=== PATIENT | female | born 1950 | race Caucasian/White ===

== ENCOUNTER → 2017-08-01 | Outpatient (CLI) | payer MEDICARE ==
[~2017-08-01] MED LIST: ASP81TEC PO; FLEC100T2 PO; MELO-195 PO; TRIMTERENE
== END ==
LOC: CARD 11:55
PROVIDERS: ATTEND Nurse Practitioner Family
DX: R07.9 Chest pain, unspecified (principal); R10.13 Epigastric pain
CPT/HCPCS: 93005

== ENCOUNTER → 2018-02-26 | Outpatient (CLI) | payer MEDICARE ==
[2018-02-26 18:44] LABS: ALBUMIN 4.1 GM/DL (3.2-4.5); BILIRUBIN,TOTAL 0.9 MG/DL (0.1-1.0); CALCIUM 9.8 MG/DL (8.5-10.1); CREATININE SERUM 1.01 MG/DL (0.60-1.30); POTASSIUM 3.4 MMOL/L (3.6-5.0); TOTAL PROTEIN 6.4 GM/DL (6.4-8.2)
--- NOTE | 2018-02-26 18:48 | Diagnostic Imaging Report ---
INDICATION: Right foot pain, random sharp pains on the top of the foot x1 week. No known injury. TECHNIQUE: 3 views of the right foot CORRELATION STUDY: None FINDINGS: No acute bony abnormality. Alignment is anatomic. There are prominent asymmetric degenerative changes along the tarsometatarsal articulations with slight loss of the normal smooth margins. Slight hallux valgus primus varus alignment with additional degenerative changes of the first MTP joint with osteophyte formation. Mild prominent plantar calcaneal spur formation. IMPRESSION: 1. Negative for acute findings of the foot. Multifocal degenerative changes about the right foot, most pronounced at the first MTP joint along the tarsometatarsal articulations. Dictated by: Dictated on workstation # [id number]
== END ==
LOC: RAD 18:08
PROVIDERS: ATTEND Nurse Practitioner Family
DX: M19.071 Primary osteoarthritis, right ankle and foot (principal)
CPT/HCPCS: 36415; 73630; 80053

== ENCOUNTER 2018-12-22 15:58 | Emergency (ER) | payer MEDICARE ==
[~2018-12-22] VITALS: Ht 165.1 cm; Wt 86.2 kg
[2018-12-22] MEDS ORDERED: ACHD5005 PO (16:44)
[2018-12-22] MEDS ORDERED: INDO75CA3 PO (16:44)
--- NOTE | 2018-12-22 16:44 | ED Lower Extremity ---
General Chief Complaint: Lower Extremity Stated Complaint: R FOOT PAIN Nursing Triage Note: PT TO ED W/ CHRONIC RT FOOT PAIN. DENIES PAIN AT THIS TIME. 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 NO OTHER C/O VOICED Nursing Sepsis Screen: No Definite Risk History of Present Illness Date Seen by Provider: Dec 22, 2018 Time Seen by Provider: 16:10 Initial Comments 68-year-old female presents for right foot pain. She states the symptoms of been intermittent over the last year. Over the last 2 days they've gotten worse and today she finally took hydrocodone with improvement after the second dose. She has been given Lyrica for this as well and cyclobenzaprine with minimal improvement when using those medications. She has seen a neurologist and had an MRI of her low back with no conclusive evidence for the cause of her symptoms. Onset: yesterday Pain/Injury Location: right foot Method of Injury: unknown Allergies and Home Medications Allergies Coded Allergies: No Known Drug Allergies (Unverified , 11/29/12) Home Medications Aspirin 81 Mg Tabec, 81 MG PO DAILY, (Reported) Flecainide Acetate 100 Mg Tablet, 100 MG PO BID, (Reported) Hydrocodone Bit/Acetaminophen 1 Tab Tab, 1 EACH PO Q8H PRN for PAIN-MODERATE Prescribed by: SREEKANTH GOODE on 12/22/18 1644 Indomethacin 75 Mg Capsule.er, 75 MG PO DAILY Prescribed by: SREEKANTH GOODE on 12/22/18 1644 Meloxicam 15 Mg Tablet, 1 EACH PO DAILY, (Reported) [Trimterene] , 25 MG DAILY, (Reported) Patient Home Medication List Home Medication List Reviewed: Yes Review of Systems Constitutional: no symptoms reported, see HPI Musculoskeletal: see HPI, joint pain (right foot, metatarsals) All Other Systems Reviewed Negative Unless Noted: Yes Past Qtsfunq-Itvmeu-Blgfzv Hx Past Med/Social Hx: Reviewed Nursing Past Med/Soc Hx Patient Social History Alcohol Use: Rarely Uses Recreational Drug Use: No Smoking Status: Never a Smoker Recent Foreign Travel: No Contact w/Someone Who Travel: No Recent Infectious Disease Expo: No Recent Hopitalizations: No Past Medical History Surgeries: Yes (RT TOTAL KNEE, RT ROTATOR CUFF) Gallbladder, Hysterectomy, Orthopedic Respiratory: No Cardiac: Yes (A-FIB) Neurological: No Genitourinary: No Gastrointestinal: No Musculoskeletal: Yes (ARTHRITIS) Endocrine: No Cancer: Yes Skin Psychosocial: No Integumentary: No Physical Exam Vital Signs Vital Signs - First Documented 12/22/18 16:05 Temp 98.3 Pulse 60 Resp 18 B/P (MAP) 138/79 (98) Pulse Ox 98 O2 Delivery Room Air Capillary Refill : Less Than 3 Seconds Height, Weight, BMI Height: 5'5.00" Weight: 190lbs. oz. [id number]; BMI Method:Stated General Appearance: WD/WN, no apparent distress Cardiovascular: normal peripheral pulses, regular rate, rhythm, no murmur Respiratory: chest non-tender, lungs clear, normal breath sounds Gastrointestinal: normal bowel sounds, non tender, soft Feet: right foot non-tender (at this time the patient is not having pain since she took hydrocodone COMMUNITY RELATIONS SPECIALIST), right foot normal inspection, right foot normal range of motion, right foot no evidence of injury Neurologic/Psychiatric: no motor/sensory deficits, alert, normal mood/affect Skin: normal color, warm/dry Progress/Results/Core Measures Results/Orders Vital Signs/I&O 12/22/18 12/22/18 16:05 16:51 Temp 98.3 Pulse 60 0 Resp 18 0 B/P (MAP) 138/79 (98) 0/0 (0) Pulse Ox 98 0 O2 Delivery Room Air Blood Pressure Mean: 98 Progress Progress Note : Time: 16:10 Progress Note Patient seen and evaluated, since she is asymptomatic at this time no further treatment was recommended. She did have x-rays done of her foot less than 12 months ago. She will follow up with her primary care provider. Discharge instructions and return precautions reviewed with her. Addendum: Pharmacy called, the patient just filled Meloxicam this morning, she did not report that to this provider, will cancel the Rx for Indocin. Departure Impression Primary Impression: Right foot pain Disposition: 01 HOME, SELF-CARE Condition: Improved Departure-Patient Inst. Decision time for Depature: 16:40 Referrals: SHAHNAZ OZUNA MD (PCP/Family) Primary Care Physician Patient Instructions: Metatarsalgia (DC) Add. Discharge Instructions: Alternate between heat and ice to the right foot. Take your home medications as prescribed. Follow-up with your primary care provider if symptoms are not improving or worsen. Take the prescribed medication as indicated. Return to emergency department for new, urgent health care needs. All discharge instructions reviewed with patient and/or family. Voiced unde rstanding. Scripts Indomethacin (Indomethacin) 75 Mg Capsule.er 75 MG PO DAILY, #20 CAP 0 Refills Prov: SREEKANTH GOODE 12/22/18 Hydrocodone Bit/Acetaminophen (Hydrocodone/Acetaminophen 5/325mg Tablet) 1 Tab Tab 1 EACH PO Q8H PRN for PAIN-MODERATE MDD 10, #8 TAB 0 Refills Prov: SREEKANTH GOODE 12/22/18 Copy Copies To 1: SHAHNAZ OZUNA MD, AMY ARNP Dec 22, 2018 16:44
[2018-12-22 16:51] VITALS: BP 0/0
--- NOTE | 2018-12-22 16:51 | NUR ---
PT DISCHARGED TO HOME WITH RX ET INSTR. PT TO F/U W/ PCP, TAKE MEDS PRESCRIBED ET RETURN IF SYMPTOMS CHANGE OR GET WORSE. UNDERSTANDING VOICED.
== END 2018-12-22 16:51 | disposition home or self-care (01) ==
LOC: EDUNIT# 15:58 → ER 15:59
DX: M79.671 Pain in right foot (principal); I48.91 Unspecified atrial fibrillation; Z85.828 Personal history of other malignant neoplasm of skin; Z79.82 Long term (current) use of aspirin; Z90.710 Acquired absence of both cervix and uterus
CPT/HCPCS: 99282

== ENCOUNTER → 2019-09-23 | Outpatient (CLI) | payer MEDICARE ==
[~2019-09-23] MED LIST changes: +ACHD5005 PO; +INDO75CA3 PO
--- NOTE | 2019-09-23 13:08 | Diagnostic Imaging Report ---
INDICATION: Fall with left shoulder pain. TECHNIQUE: AP, oblique, and lateral views of the left shoulder were obtained. FINDINGS: No fracture or dislocation is seen. There is no acute bony abnormality. There is decreased distance between the acromion and humeral head which does raise the possibility of rotator cuff pathology. IMPRESSION: No acute fracture or dislocation of the glenohumeral joint or AC joint. Decreased distance between the acromion and humeral head does raise the possibility of rotator cuff pathology. Consider MRI if clinically warranted. Dictated by: Dictated on workstation # [id number]
--- NOTE | 2019-09-23 13:50 | Diagnostic Imaging Report ---
INDICATION: Post fall couple weeks ago. Pain.. TECHNIQUE: 3 views right RIBS, 11:57 AM. CORRELATION STUDY: None FINDINGS: There is presence of very minimally displaced right 4th and 5th and potentially 6th rib fractures. Some adjacent pleural thickening present. Lungs otherwise clear without pneumothorax. Prior rotator cuff surgery with 2 anchor screws over the humeral head. IMPRESSION: 1. Minimally displaced right lateral 4th, 5th and potentially 6th rib fracture. Associated adjacent pleural thickening. Dictated by: Dictated on workstation # [id number]
== END ==
LOC: RAD 11:02
PROVIDERS: ATTEND Nurse Practitioner Family
DX: M25.512 Pain in left shoulder (principal); R07.81 Pleurodynia; W19.XXXA Unspecified fall, initial encounter
CPT/HCPCS: 71100; 73030

== ENCOUNTER 2021-04-28 14:21 | Outpatient (RCR) | payer MEDICARE ==
[~2021-04-28 14:21] MED LIST changes: +INDO75CA10 PO; -INDO75CA3 PO
== END 2021-05-07 | disposition home or self-care (01) ==
PROVIDERS: ATTEND Nurse Practitioner Family
DX: M54.41 Lumbago with sciatica, right side (principal)

== ENCOUNTER → 2021-05-04 | Outpatient (CLI) | payer MEDICARE ==
--- NOTE | 2021-05-04 15:41 | Diagnostic Imaging Report ---
INDICATION: Postmenopausal COMPARISON: None FINDINGS: The bone mineral density of the spine, the right hip and the right femoral neck was measured. By history the patient has had a total hip preplacement on the left. The total T score for the spine is 1.7. This value is well within normal limits. The T score for the right hip is -2.1 and for the right femoral neck -1.8. These values indicate osteopenia. AP Spine L1-L4: [BMD (g/cm2): 1.406] [T-Score: 1.7] [Z-Score: 2.6] [BMD Previous: 1.067] [BMD % Change: 31.8] LT Hip Neck: [BMD (g/cm2): NA] [T-Score: NA] [Z-Score: NA] LT Hip Total: [BMD (g/cm2):NA] [T-Score:NA] [Z-Score: NA] [BMD Previous: NA] [BMD % Change: NA] RT Hip Neck: [BMD (g/cm2):0.790] [T-Score:-1.8] [Z-Score:-0.5] RT Hip Total: [BMD (g/cm2):0.749] [T-score:-2.1] [Z-Score:-1.1] [BMD Previous:0.813] [BMD % Change:-7.9] *Indicates significant change from prior examination based on 95% confidence level. World Health Organization criteria for BMD interpretation classify patients as Normal (T-score at or above -1.0), Osteopenic (T-score between -1.0 and -2.5) or Osteoporotic (T-score at or below -2.5). LIMITATIONS AND MODIFICATION: None. FRACTURE RISK (FRAX SCORE): The ten year probability of (%): Major Osteoporotic Fracture: [16.8] Hip Fracture: [3.0] IMPRESSION: 1. The bone density of the spine is within normal limits but there is osteopenia of the right hip and the right femoral neck. 2. See below National Osteoporosis Foundation guidelines on when to potentially initiate pharmacologic therapy. Based on the National Osteoporosis Foundation Guidelines, pharmacologic treatment should be initiated in any of the following, unless clinical conditions suggest otherwise: * Any patient with prior fragility fracture of the hip or vertebrae. A spine fracture indicates 5X risk for subsequent spine fracture and 2X risk for subsequent hip fracture. * Osteoporosis (T-score <-2.5). * Postmenopausal women and men age 50 and older with low bone mass/osteopenia (T-score between -1.0 and -2.5) by DXA and 10-year major osteoporotic fracture greater than 20% or a 10-year probability of hip fracture greater than 3%. These fracture risks are supplied above in the FRAX score, if applicable. * Clinician judgement and/or patient preferences may indicate treatment for people with 10-year fracture probabilities above or below these levels. Dictated by: Dictated on workstation # [id number]
== END ==
LOC: RAD 13:00
PROVIDERS: ATTEND Nurse Practitioner Family
DX: M85.89 Other specified disorders of bone density and structure, multiple sites (principal); Z78.0 Asymptomatic menopausal state
CPT/HCPCS: 77080

== ENCOUNTER 2021-05-10 05:41 | Outpatient (CLI) | payer MEDICARE ==
[~2021-05-10] VITALS: Ht 165.1 cm; Wt 97.1 kg
[2021-05-12] MEDS ORDERED: GBPN600T PO (13:34)
[2021-05-12] MEDS ORDERED: LOSA1TAB23 PO (13:34)
== END 2021-05-12 15:43 | disposition home or self-care (01) ==
LOC: PREOP 05:41
PROVIDERS: ATTEND Surgery
DX: Z01.818 Encounter for other preprocedural examination (principal)

== ENCOUNTER 2021-05-17 07:55 | Day surgery (SDC) | payer MEDICARE ==
[~2021-05-17] VITALS: Ht 165 cm; Wt 97.0 kg
[~2021-05-17 07:55] MED LIST changes: +GBPN600T PO; +LOSA1TAB23 PO
--- OUTSIDE RECORDS SUMMARY | 2021-05-17 07:59 | XMS REPORT | CCD ---
Author Author Karma Palomino Organization Elisabeth Lieberman MD, [facility] Address [address] [place] [address] Phone Care Team Providers Care Managed Care Liaison Name Role Phone PP Unavailable CCM Unavailable Summary Purpose Interface Exchange Insurance Providers Payer name Policy type / Coverage type Covered alliance party ID Effective Begin Date Effective End Date [place] [employer] Medicare Part B [id number] 2019 Unknown AARP Medicare Part B [id number] 2019 Unknown Family history Brother Diagnosis Age At Onset Colon cancer Unknown Sister Diagnosis Age At Onset Cancer Unknown Hypertension Unknown Mother Diagnosis Age At Onset Coronary Artery Disease Unknown Hypertension Unknown Father Diagnosis Age At Onset Cancer Unknown Coronary Artery Disease Unknown Hyperlipidemia Unknown Hypertension Unknown Social History Social History Element Codes Description Effective Dates Marital status Unknown Urban 05/28/2015 Employment Unknown Retired 05/28/[address]: 923937785 Never smoker 05/28/2015 Alcohol history Unknown occasionally drinks alcohol 05/09 Allergies, Adverse Reactions, Alerts Substance Reaction Codes Entered Date Inactivated Date Status NO KNOWN ALLERGIES Unknown 05/28/2015 No Inactive Date Active Problems Condition Codes Effective Dates Condition Status Left knee pain ICD-10: M25.562 ICD-9: 719.46 11/28/2019 Active Pre-op evaluation ICD-10: Z01.818 ICD-9: V72.84 11/28/2019 Active Cellulitis of right wrist ICD-10: L03.113 ICD-9: 682.4 09/16/2019 Active Spider bite wound, accidental or unintentional, subseq uent encounter ICD-10: T63.301D ICD-9: V58.89 09/23/2019 Active Spider bite wound, accidental or unintentional, initia l encounter ICD-10: T63.301A ICD-9: 989.5 09/16/2019 Active Follow up ICD-10: Z09 ICD-9: V67.9 09/16/2019 Active Shingles ICD-10: B02.9 ICD-9: 053.9 09/16/2019 Active Essential (primary) hypertension ICD-10: I10 ICD-9: 401.9 12/23/2015 Active Generalized anxiety disorder ICD-10: F41.1 ICD-9: 308.0 12/23/2015 Active Pain in right foot ICD-10: M79.671 ICD-9: 729.5 02/26/2018 Active Primary osteoarthritis of left knee ICD-10: M17.12 ICD-9: 715.16 07/22/2019 Active Follow-up examination after orthopedic surgery ICD-10: Z09 ICD-9: V67.09 04/17/2019 Active Hip fracture, left ICD-10: S72.002A ICD-9: 820.8 04/17/2019 Active Gastro-esophageal reflux disease without esophagitis I CD-10: K21.9 ICD-9: 530.81 08/01/2017 Active Low back pain ICD-10: M54.5 ICD-9: 724.2 08/22/2018 Active Slow transit constipation ICD-10: K59.01 ICD-9: 564.01 08/22/2018 Active Chronic idiopathic constipation ICD-10: K59.04 ICD-9: 564.00 09/21/2016 Active Other insomnia ICD-10: G47.09 ICD-9: 327.09 08/24/2016 Active 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 ICD-9: 715.89 08/24/2016 Active Acute laryngopharyngitis ICD-10: J06.0 ICD-9: 465.0 03/06/2016 Active Other acute sinusitis ICD-10: J01.80 ICD-9: 461.8 03/06/2016 Active Major depressive disorder, recurrent, moderate ICD-10: F33.1 ICD-9: 296.32 12/23/2015 Active Hypertension Unknown 05/28/2015 Active Actinic keratosis ICD-10: L57.0 ICD-9: 702.0 05/27/2015 Active Medications Medication Codes Instructions Start Date Stop Date Status Fill Instructions losartan 100 mg-hydrochlorothiazide 25 mg tablet RxNorm: 979 471 Take 1 Tablet(s) Oral every day 04/12/2021 07/10/2021 Active meloxicam 15 mg tablet RxNorm: 833676 TAKE 1 TABLET BY MOUTH EV SUDARSHAN DAY 08/07/2020 08/02/2021 Active flecainide 100 mg tablet RxNorm: 713017 TAKE 1 TABLET BY MOUTH TWICE DAILY 06/04/2020 05/30/2021 Active tier 1 approved unti l may 07 2020. approval number [id number] gabapentin 600 mg tablet RxNorm: 248117 TAKE 1 TABLET B Y MOUTH THREE TIMES DAILY 06/04/2020 10/02/2020 Inactive tier 1 approved until may 07 2020. approval number is [id number] gabapentin 600 mg tablet RxNorm: 732312 TAKE 1 TABLET B Y MOUTH THREE TIMES DAILY 05/20/2020 06/03/2020 Inactive needs PA for low er tier- please send info to office. flecainide 100 mg tablet RxNorm: 599891 TAKE 1 TABLET BY MOUTH TWICE DAILY 05/20/2020 06/03/2020 Inactive needs PA for lower t ier- please send info to office gabapentin 600 mg tablet RxNorm: 341821 TAKE 1 TABLET B Y MOUTH THREE TIMES DAILY 04/07/2020 05/19/2020 Inactive needs PA- please send info to office. flecainide 100 mg tablet RxNorm: 500359 TAKE 1 TABLET BY MOUTH TWICE DAILY 04/07/2020 05/19/2020 Inactive needs PA- please sen d info to office losartan 100 mg-hydrochlorothiazide 25 mg tablet RxNorm: 979 471 TAKE 1 TABLET BY MOUTH EVERY DAY 04/06/2020 04/06/2020 Inactive meloxicam 15 mg tablet RxNorm: 404473 TAKE 1 TABLET BY MOUTH EV SUDARSHAN DAY 02/04/2020 05/03/2020 Inactive clindamycin HCl 300 mg capsule RxNorm: 964873 1 Capsule (s) Oral three times a day 01/06/2020 01/13/2020 Inactive Augmentin 500 mg-125 mg tablet RxNorm: 769044 1 Tablet( s) Oral three times a day 01/06/2020 01/16/2020 Inactive gabapentin 600 mg tablet RxNorm: 921823 TAKE 1 TABLET B Y MOUTH THREE TIMES DAILY 11/14/2019 03/12/2020 Inactive losartan 100 mg-hydrochlorothiazide 25 mg tablet RxNorm: 979 471 TAKE 1 TABLET BY MOUTH EVERY DAY 10/18/2019 04/05/2020 Inactive flecainide 100 mg tablet RxNorm: 868308 TAKE 1 TABLET BY MOUTH TWICE DAILY 09/23/2019 04/06/2020 Inactive Xanax 0.25 mg tablet RxNorm: 597268 1 Tablet(s) Oral ev sudarshan day as needed anxiety 09/20/2019 No Stop Date Active dapsone 25 mg tablet RxNorm: 858755 1 Tablet(s) Oral two times a da y 09/20/2019 09/27/2019 Inactive naproxen 500 mg tablet RxNorm: 809142 1 Tablet(s) Oral two time s a day 09/20/2019 09/24/2019 Inactive mupirocin 2 % topical ointment RxNorm: 585458 1 Applica tion Topical two times a day 09/16/2019 No Stop Date Active naproxen 500 mg tablet RxNorm: 723627 1 Tablet(s) Oral two time s a day 09/16/2019 09/19/2019 Inactive doxycycline hyclate 100 mg capsule RxNorm: 9436702 1 Cap heavenly(s) Oral two times a day 09/16/2019 09/26/2019 Inactive valacyclovir 1 gram tablet RxNorm: 896661 1 Tablet(s) Oral thre e times a day 09/16/2019 09/23/2019 Inactive gabapentin 600 mg tablet RxNorm: 186327 TAKE 1 TABLET B Y MOUTH THREE TIMES DAILY 09/03/2019 11/01/2019 Inactive meloxicam 15 mg tablet RxNorm: 928448 TAKE 1 TABLET BY MOUTH DAILY 08/05/2019 02/03/2020 Inactive diclofenac 1 % topical gel RxNorm: 392155 1-2 Gram(s) Topical t hree times a day 07/22/2019 08/21/2019 Inactive gabapentin 600 mg tablet RxNorm: 556107 1 Tablet(s) Oral three times a day 05/30/2019 05/29/2019 Inactive gabapentin 600 mg tablet RxNorm: 921350 1 Tablet(s) Oral three times a day 05/30/2019 07/29/2019 Inactive hydrochlorothiazide 25 mg tablet RxNorm: 187568 1 Tablet(s) PO barby y 01/04/2019 03/28/2020 Inactive losartan 100 mg tablet RxNorm: 478492 1 Tablet(s) PO daily 01/05/20 19 03/28/2020 Inactive hydrochlorothiazide 25 mg tablet RxNorm: 454402 1 Tablet(s) PO barby y 01/04/2019 01/03/2019 Inactive losartan 100 mg tablet RxNorm: 066307 1 Tablet(s) PO daily 01/05/20 19 01/03/2019 Inactive losartan 100 mg-hydrochlorothiazide 25 mg tablet RxNorm: 979 471 Tablet(s) TABLET(S) TAKE 1 TABLET BY MOUTH EVERY DAY 01/01/2019 06/29/2019 Inact carlos meloxicam 15 mg tablet RxNorm: 500702 1 TABLET(S) PO DAILY 1 TA BLET(S) PO DAILY 2018 08/04/2019 Inactive Lyrica 150 mg capsule RxNorm: 421202 1 Capsule(s) PO BID 10/18/2018 1 Inactive Lyrica 150 mg capsule RxNorm: 015961 1 Capsule(s) PO BID 10/18/2018 0 10/17/2018 Inactive flecainide 100 mg tablet RxNorm: 690463 1 TABLET(S) PO BID TABLET(S) TAKE 1 TABLET BY MOUTH TWICE DAILY 08/29/2018 08/23/2019 Inactive Carafate 1 gram tablet RxNorm: 831428 1 TABLET(S) PO QID 08/23/2018 0 10/21/2018 Inactive Patient requests 90 days supply Protonix 40 mg tablet,delayed release RxNorm: 607809 1 TABLET(S ) PO DAILY 08/23/2018 10/21/2018 Inactive Patient requests 9 0 days supply Protonix 40 mg tablet,delayed release RxNorm: 291546 1 Tablet(s ) PO daily 08/22/2018 08/21/2018 Inactive Carafate 1 gram tablet RxNorm: 336112 1 Tablet(s) PO QID 08/22/2018 0 08/22/2018 Inactive Linzess 72 mcg capsule RxNorm: 0940496 1 Capsule(s) PO daily 201811/19/2018 Inactive Protonix 40 mg tablet,delayed release RxNorm: 505103 1 Tablet(s ) PO daily 08/22/2018 08/22/2018 Inactive Linzess 72 mcg capsule RxNorm: 4042834 1 Capsule(s) PO daily 201808/21/2018 Inactive Carafate 1 gram tablet RxNorm: 419466 1 Tablet(s) PO QID 08/22/2018 0 08/21/2018 Inactive cyclobenzaprine 5 mg tablet RxNorm: 379245 1-2 Tablet(s) PO TID 08/26/2018 Inactive losartan 100 mg-hydrochlorothiazide 25 mg tablet RxNorm: 979 471 TABLET(S) TAKE 1 TABLET BY MOUTH EVERY DAY 06/25/2018 12/21/2018 Inactive cyclobenzaprine 5 mg tablet RxNorm: 774429 1-2 Tablet(s) PO TID 04/01/2018 Inactive Dexilant 60 mg capsule, delayed release RxNorm: 825468 1 Capsul e(s) PO daily 03/09/2018 03/08/2018 Inactive Dexilant 60 mg capsule, delayed release RxNorm: 012849 1 Capsul e(s) PO daily 03/09/2018 04/07/2018 Inactive Lyrica 75 mg capsule RxNorm: 742424 1 Capsule(s) PO TID 03/09/2018 Inactive amoxicillin 500 mg capsule RxNorm: 045589 1 Capsule(s) PO TID 03/0503/11/2018 Inactive cyclobenzaprine 5 mg tablet RxNorm: 167389 1-2 Tablet(s) PO TID 03/02/2018 Inactive acyclovir 800 mg tablet RxNorm: 276719 1 Tablet(s) PO TID 02/26/2018 03/03/2018 Inactive Lyrica 75 mg capsule RxNorm: 775395 1 Capsule(s) PO TID 02/26/2018 Inactive meloxicam 15 mg tablet RxNorm: 285978 1 TABLET(S) PO DAILY 1 TA BLET(S) PO DAILY 12/08/2017 12/02/2018 Inactive flecainide 100 mg tablet RxNorm: 806355 1 TABLET(S) PO BID TABLET(S) TAKE 1 TABLET BY MOUTH TWICE DAILY 09/12/2017 08/28/2018 Inactive meloxicam 15 mg tablet RxNorm: 605741 1 TABLET(S) PO DAILY 1 TA BLET(S) PO DAILY 09/11/2017 12/18/2018 Inactive meloxicam 15 mg tablet RxNorm: 210777 1 Tablet(s) PO daily 1 TA BLET(S) PO DAILY 09/07/2017 09/10/2017 Inactive Bactrim DS 800 mg-160 mg tablet RxNorm: 682239 1 Tablet(s) PO BID 0 07/03/2017 07/09/2017 Inactive Bactrim DS 800 mg-160 mg tablet RxNorm: 843625 1 Tablet(s) PO BID 0 07/03/2017 07/02/2017 Inactive losartan 100 mg-hydrochlorothiazide 25 mg tablet RxNorm: 979 471 Tablet(s) TAKE 1 TABLET BY MOUTH EVERY DAY 06/08/2017 03/04/2018 Inactive losartan 100 mg-hydrochlorothiazide 25 mg tablet RxNorm: 979 471 1 TABLET(S) PO DAILY TABLET(S) TAKE 1 TABLET BY MOUTH EVERY DAY 12/05/2016 06/07/2017 Inactive amoxicillin 500 mg capsule RxNorm: 198957 1 Capsule(s) PO TID 10/1410/23/2016 Inactive losartan 100 mg-hydrochlorothiazide 25 mg tablet RxNorm: 979 471 1 Tablet(s) PO daily TABLET(S) TAKE 1 TABLET BY MOUTH EVERY DAY 08/24/2016 12/04/2016 Inactive meloxicam 15 mg tablet RxNorm: 039338 1 Tablet(s) PO daily 1 TA BLET(S) PO DAILY 08/24/2016 09/06/2017 Inactive flecainide 100 mg tablet RxNorm: 782041 1 Tablet(s) PO BID TABLET(S) TAKE 1 TABLET BY MOUTH TWICE DAILY 08/24/2016 09/11/2017 Inactive flecainide 100 mg tablet RxNorm: 387221 TABLET(S) TAKE 1 TABLET BY MOUTH TWICE DAILY 08/02/2016 08/23/2016 Inactive flecainide 100 mg tablet RxNorm: 836921 TABLET(S) TAKE 1 TABLET BY MOUTH TWICE DAILY 07/04/2016 08/01/2016 Inactive flecainide 100 mg tablet RxNorm: 627498 TABLET(S) TAKE 1 TABLET BY MOUTH TWICE DAILY 05/30/2016 06/28/2016 Inactive meloxicam 15 mg tablet RxNorm: 530155 1 TABLET(S) PO DAILY 05/18/19 17 08/23/2016 Inactive losartan 50 mg-hydrochlorothiazide 12.5 mg tablet RxNorm: 97 9468 TABLET(S) TAKE 1 TABLET BY MOUTH EVERY DAY 05/18/2016 06/16/2016 Inactive meloxicam 15 mg tablet RxNorm: 683774 Tablet(s) TAKE 1 TABLET BY MOUTH EVERY DAY 05/17/2016 07/31/2017 Inactive losartan 50 mg-hydrochlorothiazide 12.5 mg tablet RxNorm: 97 9468 Tablet(s) TAKE 1 TABLET BY MOUTH EVERY DAY 05/17/2016 07/31/2017 Inactive amoxicillin 500 mg capsule RxNorm: 564159 1 Capsule(s) PO TID 03/0703/13/2016 Inactive Kenalog 40 mg/mL suspension for injection RxNorm: 5445421 1 Mill iliter(s) Inj 03/07/2016 03/07/2016 Inactive Zithromax Z-Feliciano 250 mg tablet RxNorm: 243863 1 Tablet(s) PO 016 08/23/2016 Inactive Wellbutrin XL 150 mg 24 hr tablet, extended release RxNorm: 065841 1 Tablet(s) PO daily 12/24/2015 08/23/2016 Inactive losartan 50 mg-hydrochlorothiazide 12.5 mg tablet RxNorm: 97 9468 TAKE 1 TABLET BY MOUTH EVERY DAY 11/17/2015 12/16/2015 Inactive flecainide 100 mg tablet RxNorm: 264471 TAKE 1 TABLET BY MOUTH TWICE DAILY 11/17/2015 07/31/2017 Inactive losartan 50 mg-hydrochlorothiazide 12.5 mg tablet RxNorm: 97 9468 TABLET(S) TAKE 1 TABLET BY MOUTH EVERY DAY 11/17/2015 07/31/2017 Inactive Serafin woo requests 90 days supply meloxicam 15 mg tablet RxNorm: 474651 TAKE 1 TABLET BY MOUTH 11/17/2015 12/16/2015 Inactive meloxicam 15 mg tablet RxNorm: 732518 1 Tablet(s) PO daily 11/16/19 16 11/16/2015 Inactive flecainide 100 mg tablet RxNorm: 306200 Tablet(s) TAKE 1 TABLET BY MOUTH TWICE DAILY 11/16/2015 05/13/2016 Inactive losartan 50 mg-hydrochlorothiazide 12.5 mg tablet RxNorm: 97 9468 Tablet(s) TAKE 1 TABLET BY MOUTH EVERY DAY 11/16/2015 11/16/2015 Inactive losartan 50 mg-hydrochlorothiazide 12.5 mg tablet RxNorm: 97 9468 TAKE 1 TABLET BY MOUTH EVERY DAY 10/15/2015 11/13/2015 Inactive flecainide 100 mg tablet RxNorm: 168778 TAKE 1 TABLET BY MOUTH TWICE DAILY 10/08/2015 11/06/2015 Inactive losartan 50 mg-hydrochlorothiazide 12.5 mg tablet RxNorm: 97 9468 TAKE 1 TABLET BY MOUTH EVERY DAY 08/20/2015 09/18/2015 Inactive meloxicam 15 mg tablet RxNorm: 807208 1 Tablet(s) PO daily 07/20/19 16 11/15/2015 Inactive flecainide 100 mg tablet RxNorm: 233479 1 Tablet(s) PO BID 07/20/19 16 09/17/2015 Inactive aspirin 81 mg chewable tablet RxNorm: 495338 1 Tablet(s) PO daily 0 05/28/2015 06/26/2015 Inactive Vitamin D3 2,000 unit tablet RxNorm: 107134 1 Tablet(s) PO daily 06/26/2015 Inactive aspirin 81 mg chewable tablet RxNorm: 531311 1 Tablet(s) PO daily 0 05/28/2015 05/27/2015 Inactive flecainide 100 mg tablet RxNorm: 526501 1 Tablet(s) PO BID 05/28/19 16 06/26/2015 Inactive losartan 50 mg-hydrochlorothiazide 12.5 mg tablet RxNorm: 97 9468 1 Tablet(s) PO daily 05/28/2015 06/26/2015 Inactive meloxicam 15 mg tablet RxNorm: 969412 1 Tablet(s) PO daily 05/28/19 16 06/26/2015 Inactive meloxicam 15 mg tablet RxNorm: 127797 1 Tablet(s) PO daily 05/22/19 16 05/27/2015 Inactive meloxicam 15 mg tablet RxNorm: 428954 1 Tablet(s) PO daily 05/22/19 16 05/21/2015 Inactive Linzess oral RxNorm: 1476135 oral 12/20/2016 Active Vitamin D3 2,000 unit tablet RxNorm: 435259 1 Tablet(s) PO daily 05/27/2015 Inactive losartan 50 mg-hydrochlorothiazide 12.5 mg tablet RxNorm: 97 9468 1 Tablet(s) PO daily 05/28/2015 05/27/2015 Inactive flecainide 100 mg tablet RxNorm: 931056 1 Tablet(s) PO BID 05/28/19 16 05/27/2015 Inactive Medication Administered Medication Codes Instructions Start Date Status Kenalog 40 mg/mL suspension for injection RxNorm: 5800015 1Milli liter 03/07/2016 No longer Active Immunizations No Immunization data Results Observation Observation Code Item Item Code Result Date S ervice Location Lipid Ord30 CHOL 199 mg/dL 01/04/2017 Unknown Lipid Ord30 HDL 61.0 mg/dl 01/04/2017 Unknown Lipid Ord30 TRIG 104 mg/dL 01/04/2017 Unknown Lipid Ord30 LDL 117 mg/dL 01/04/2017 Unknown Lipid Ord30 C/HDL 3.3 Ratio 01/04/2017 Unknown Cbc With Differential Ord2 WBC 6.65 K/ul 01/05/20 17 Unknown Cbc With Differential Ord2 RBC 4.28 M/ul 01/05/20 17 Unknown Cbc With Differential Ord2 HGB 13.8 g/dl 01/05/20 17 Unknown Cbc With Differential Ord2 HCT 40.8 % 01/05/20 17 Unknown Cbc With Differential Ord2 Neut% 63.6 % 01/05/20 17 Unknown Cbc With Differential Ord2 MCV 95.3 fl 01/05/20 17 Unknown Cbc With Differential Ord2 Lymph% 24.5 % 01/05/20 17 Unknown Cbc With Differential Ord2 MCH 32.2 pg 01/05/20 17 Unknown Cbc With Differential Ord2 Barton% 6.8 % 01/05/20 17 Unknown Cbc With Differential Ord2 MCHC 33.8 pg 01/05/20 17 Unknown Cbc With Differential Ord2 Eos% 4.5 % 01/05/20 17 Unknown Cbc With Differential Ord2 PLT 189 K/ul 01/05/20 17 Unknown Cbc With Differential Ord2 Baso% 0.6 % 01/05/20 17 Unknown Cbc With Differential Ord2 RDW 12.8 % 01/05/20 17 Unknown Cbc With Differential Ord2 Neut ABS# 4.23 K/ul 01/05/20 17 Unknown Cbc With Differential Ord2 Lymph ABS# 1.63 K/ul 017 Unknown Cbc With Differential Ord2 Barton ABS# 0.5 K/ul 01/05/20 17 Unknown Cbc With Differential Ord2 Eos ABS# 0.3 K/ul 01/05/20 17 Unknown Cbc With Differential Ord2 Baso ABS# 0.0 K/ul 01/05/20 17 Unknown Comp Metabolic Apa505 NA 144 mEq/L 01/04/2017 Unkn own Comp Metabolic Bcp099 K 3.7 mEq/L 01/04/2017 Unkn own Comp Metabolic Igz090 CL 106 mEq/L 01/04/2017 Unkn own Comp Metabolic Lph326 CO2 28.0 mEq/L 01/04/2017 Unk nown Comp Metabolic Djg511 ANION GAP 14 01/04/2017 Unkn own Comp Metabolic Mxr748 GLUCOSE 80 mg/dL 01/04/2017 Unkn own Comp Metabolic Hjx592 Creat 0.9 mg/dL 01/04/2017 Unkn own Comp Metabolic Wvt206 eGFR 65 ml/min/1.73m2 01/05/20 17 Unknown Comp Metabolic Twg514 BUN 18 mg/dL 01/04/2017 Unkn own Comp Metabolic Svv645 B/C Ratio 19.8 Ratio 01/04/2017 Unk nown Comp Metabolic Rlg230 CALCIUM 9.3 mg/dL 01/04/2017 Unkn own Comp Metabolic Xqm506 ALK PHOS 65 U/L 01/04/2017 Unkn own Comp Metabolic Bxw818 AST(SGOT) 16 U/L 01/04/2017 Unkn own Comp Metabolic Ksh740 ALT(SGPT) 18 U/L 01/04/2017 Unkn own Comp Metabolic Fdn224 BILI T 1.2 mg/dL 01/04/2017 Unkn own Comp Metabolic Ivl349 ALBUMIN 3.9 g/dL 01/04/2017 Unkn own Comp Metabolic Xmk867 TPRO 6.1 g/dL 01/04/2017 Unkn own Comp Metabolic Dht586 GLOB 2.2 g/dL 01/04/2017 Unkn own Comp Metabolic Vct249 A/G Ratio 1.8 Ratio 01/04/2017 Unkn own Comp Metabolic Uvq080 Osmo 288 mOsmo 01/04/2017 Unkn own Tsh Ord6 hTSH II 1.22 uIU/mL 01/04/2017 Unknown Comp Metabolic Ozi779 NA 139 mEq/L 12/24/2015 Unkn own Comp Metabolic Gkt560 K 3.7 mEq/L 12/24/2015 Unkn own Comp Metabolic Ptr804 CL 105 mEq/L 12/24/2015 Unkn own Comp Metabolic Jnl591 CO2 30.0 mEq/L 12/24/2015 Unk nown Comp Metabolic Dac290 ANION GAP 8 12/24/2015 Unkn own Comp Metabolic Bgi854 GLUCOSE 83 mg/dL 12/24/2015 Unkn own Comp Metabolic Mhv494 Creat 0.9 mg/dL 12/24/2015 Unkn own Comp Metabolic Kmr000 eGFR 70 ml/min/1.73m2 12/24/19 16 Unknown Comp Metabolic Vkx865 BUN 20 mg/dL 12/24/2015 Unkn own Comp Metabolic Eem415 B/C Ratio 23.3 Ratio 12/24/2015 Unk nown Comp Metabolic Beb926 CALCIUM 9.2 mg/dL 12/24/2015 Unkn own Comp Metabolic Gmt699 ALK PHOS 65 U/L 12/24/2015 Unkn own Comp Metabolic Ala319 AST(SGOT) 17 U/L 12/24/2015 Unkn own Comp Metabolic Ybk360 ALT(SGPT) 18 U/L 12/24/2015 Unkn own Comp Metabolic Mjx579 BILI T 1.1 mg/dL 12/24/2015 Unkn own Comp Metabolic Mqd066 ALBUMIN 3.9 g/dL 12/24/2015 Unkn own Comp Metabolic Yel532 TPRO 6.1 g/dL 12/24/2015 Unkn own Comp Metabolic Czd185 GLOB 2.2 g/dL 12/24/2015 Unkn own Comp Metabolic Qjc339 A/G Ratio 1.8 Ratio 12/24/2015 Unkn own Comp Metabolic Obv403 Osmo 279 mOsmo 12/24/2015 Unkn own Lipid Ord30 CHOL 211 mg/dL 12/24/2015 Unknown Lipid Ord30 HDL 61.0 mg/dl 12/24/2015 Unknown Lipid Ord30 TRIG 92 mg/dL 12/24/2015 Unknown Lipid Ord30 LDL 132 mg/dL 12/24/2015 Unknown Lipid Ord30 C/HDL 3.5 Ratio 12/24/2015 Unknown Cbc With Differential Ord2 WBC 5.34 K/ul 12/24/19 16 Unknown Cbc With Differential Ord2 RBC 4.31 M/ul 12/24/19 16 Unknown Cbc With Differential Ord2 HGB 13.6 g/dl 12/24/19 16 Unknown Cbc With Differential Ord2 HCT 41.7 % 12/24/19 16 Unknown Cbc With Differential Ord2 Neut% 58.2 % 12/24/19 16 Unknown Cbc With Differential Ord2 Lymph% 26.6 % 12/24/19 16 Unknown Cbc With Differential Ord2 MCV 96.8 fl 12/24/19 16 Unknown Cbc With Differential Ord2 Barton% 8.2 % 12/24/19 16 Unknown Cbc With Differential Ord2 MCH 31.6 pg 12/24/19 16 Unknown Cbc With Differential Ord2 Eos% 6.6 % 12/24/19 16 Unknown Cbc With Differential Ord2 MCHC 32.6 pg 12/24/19 16 Unknown Cbc With Differential Ord2 Baso% 0.4 % 12/24/19 16 Unknown Cbc With Differential Ord2 PLT 178 K/ul 12/24/19 16 Unknown Cbc With Differential Ord2 RDW 13.1 % 12/24/19 16 Unknown Cbc With Differential Ord2 Neut ABS# 3.11 K/ul 12/24/19 16 Unknown Cbc With Differential Ord2 Lymph ABS# 1.42 K/ul 016 Unknown Cbc With Differential Ord2 Barton ABS# 0.4 K/ul 12/24/19 16 Unknown Cbc With Differential Ord2 Eos ABS# 0.4 K/ul 12/24/19 16 Unknown Cbc With Differential Ord2 Baso ABS# 0.0 K/ul 12/24/19 16 Unknown Tsh Ord6 hTSH II 1.45 uIU/mL 12/24/2015 Unknown Procedures Procedure Codes Date TRIAMCINOLONE ACET INJ NOS 10 mg CPT-4: J3301 016 DESTRUCT PREMALG LES 2-14 CPT-4: 88454 05/28/2015 Vital Signs Date Vital 11/28/2019 Weight: 205 lbs Code: 71170 -7 09/20/2019 Height: Code: 8302-2 Weight: Code: 294 63-7 09/16/2019 Heart Rate 1: 70 bpm Height: Code: 8302-2 SpO2: 98% Weight: Code: 63474-4 07/22/2019 Blood Pressure 1: 116/70 Code: 8480-6 BMI: 35.2 Code: 72909-4 Heart Rate 1: 54 bpm Height: 5'3" Code: 8302-2 Respiratory Rate: 16 bpm SpO2: 97% Weight: 202 lbs Code: 84391-0 04/17/2019 Blood Pressure 1: 156/70 Code: 8480-6 BMI: 32.9 Code: 68483-4 Heart Rate 1: 68 bpm Height: 5'6" Code: 8302-2 SpO2: 99% Weight: 204 lb s Code: 91540-2 08/22/2018 Blood Pressure 1: 128/64 Code: 8480-6 BMI: 31.3 Code: 45848-5 Heart Rate 1: 76 bpm Height: 5'6" Code: 8302-2 SpO2: 98% Weight: 194 lb s Code: 02473-4 02/26/2018 Blood Pressure 1: 140/72 Code: 8480-6 BMI: 33.6 Code: 33498-2 Heart Rate 1: 64 bpm Height: 5'6" Code: 8302-2 SpO2: 99% Weight: 208 lb s Code: 43989-2 08/01/2017 Blood Pressure 1: 148/82 Code: 8480-6 BMI: 37.3 Code: 42331-5 Heart Rate 1: 62 bpm Height: 5'6" Code: 8302-2 SpO2: 98% Weight: 231 lb s Code: 99739-9 2016 Blood Pressure 1: 128/64 Code: 8480-6 BMI: 38.4 Code: 54893-2 Heart Rate 1: 69 bpm Height: 5'6" Code: 8302-2 SpO2: 96% Weight: 238 lb s Code: 49810-8 09/21/2016 Blood Pressure 1: 148/90 Code: 8480-6 Bl ood Pressure 1: 138/82 Code: 8480-6 BMI: 37.9 Code: 30824-7 Heart Rate 1: 62 bpm Height: 5'6" Code: 8302-2 SpO2: 96% Weight: 235 lbs Code: 55062-2 08/24/2016 Blood Pressure 1: 164/82 Code: 8480-6 BMI: 38.3 Code: 46017-3 Heart Rate 1: 71 bpm Height: 5'6" Code: 8302-2 SpO2: 96% Weight: 237 lb s 8 oz Code: 54872-2 03/07/2016 Blood Pressure 1: 124/68 Code: 8480-6 BMI: 37.3 Code: 45094-8 Heart Rate 1: 58 bpm Height: 5'6" Code: 8302-2 SpO2: 97% Weight: 231 lb s Code: 61705-8 12/24/2015 Blood Pressure 1: 140/66 Code: 8480-6 BMI: 37.6 Code: 13581-1 Heart Rate 1: 57 bpm Height: 5'6" Code: 8302-2 SpO2: 97% Weight: 233 lb s Code: 20168-6 05/28/2015 Blood Pressure 1: 156/88 Code: 8480-6 BMI: 38.4 Code: 23204-3 Heart Rate 1: 62 bpm Height: 5'6" Code: 8302-2 Weight: 238 lbs Code: 02697 -7 Functional Status No Functional Status data Reason For Visit Reason For Visit Effective Dates Notes pre-op/surgery consult 11/28/2019 skin lesion 09/23/2019 skin lesion 09/20/2019 skin lesion 09/16/2019 pre-op/surgery consult 07/22/2019 fracture of the hip 04/17/2019 abdominal pain 08/22/2018 foot pain 02/26/2018 dyspepsia 08/01/2017 hypertension 2016 hypertension 09/21/2016 hypertension 08/24/2016 ongoing earache 03/07/2016 hypertension 12/24/2015 hypertension 05/28/2015 Encounters Encounter Performer Location Codes Date 32128 EST. PATIENT, LEVEL III Diagnosis: Left knee pain[ICD10: M25.562] Diagnosis: Pre-op evaluation[ICD10: Z01.818] Yen atkins MD, [facility] CPT-4: 95768 11/28/2019 [id number] EST. PATIENT, LEVEL II Diagnosis: Cellulitis of right wrist[ICD10: L03.113] Diagnosis: Spider bite wound, accidental or unintentional, subsequent encounter[ICD10: T63.301D] Yen Lieberman MD, [facility] CPT-4: 95184 09/23/2019 [id number] EST. PATIENT, LEVEL II Diagnosis: Cellulitis of right wrist[ICD10: L03.113] Diagnosis: Spider bite wound, accidental or unintentional, subsequent encounter[ICD10: T63.301D] Yen Lieberman MD, [facility] CPT-4: 80235 09/20/2019 [id number] EST. PATIENT, LEVEL III Diagnosis: Cellulitis of right wrist[ICD10: L03.113] Diagnosis: Follow up[ICD10: Z09] Diagnosis: Spider bite wound, accidental or unintentional, initial encounter[ICD10: T63.301A] Diagnosis: Shingles[ICD10: B02.9] Yen Lieberman MD, [facility] CPT -4: 45482 09/16/2019 ([id number]) [id number] EST. PATIENT, LEVEL IV Diagnosis: Essential (primary) hypertension[ICD10: I10] Diagnosis: Generalized anxiety disorder[ICD10: F41.1] Diagnosis: Pain in right foot[ICD10: M79.671] Diagnosis: Primary osteoarthritis of left knee[ICD10: M17.12] Elisabeth Lieberman MD, [facility] [facility] CPT-4: 31270 07/22/2019 49751 EST. PATIENT, LEVEL III Diagnosis: Follow-up examination after orthopedic surgery[ICD10: Z09] Diagnosis: Hip fracture, left[ICD10: S72.002A] Yen more MD, [facility] CPT-4: 33127 04/17/2019 13064 EST. PATIENT, LEVEL IV Diagnosis: Gastro-esophageal reflux disease without esophagitis[ICD10: K21.9] Diagnosis: Low back pain[ICD10: M54.5] Diagnosis: Slow transit constipation[ICD10: K59.01] Yen Lieberman MD, [facility] CPT-4: 14658 08/22/2018 34327 EST. PATIENT, LEVEL III Diagnosis: Pain in right foot[ICD10: M79.671] Yen forte MD, [facility] CPT-4: 66580 02/26/2018 59261 EST. PATIENT, LEVEL IV Diagnosis: Gastro-esophageal reflux disease without esophagitis[ICD10: K21.9] Diagnosis: Chronic idiopathic constipation[ICD10: K59.04] Yen Lieberman MD, [facility] CPT-4: 60199 08/01/2017 72054 EST. PATIENT, LEVEL IV Diagnosis: Essential (primary) hypertension[ICD10: I10] Diagnosis: Chronic idiopathic constipation[ICD10: K59.04] Yen Lieberman MD, [facility] CPT-4: 40891 2016 ([id number]) 93830 EST. PATIENT, LEVEL IV Diagnosis: Essential (primary) hypertension[ICD10: I10] Diagnosis: Generalized anxiety disorder[ICD10: F41.1] Diagnosis: Chronic idiopathic constipation[ICD10: K59.04] Elisabeth Lieberman MD, [facility] CPT-4: 97860 09/21/2016 ([id number]) 89658 EST. 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 PATIENT, LEVEL III Diagnosis: Acute laryngopharyngitis[ICD10: J06.0] Diagnosis: Other acute sinusitis[ICD10: J01.80] Yen Lieberman MD, [facility] CPT-4: 80386 03/07/2016 ([id number]) 15179 EST. PATIENT, LEVEL IV Diagnosis: Essential (primary) hypertension[ICD10: I10] Diagnosis: Major depressive disorder, recurrent, moderate[ICD10: F33.1] Diagnosis: Generalized anxiety disorder[ICD10: F41.1] Elisabeth Lieberman MD, [facility] CPT-4: 51082 12/24/2015 ([id number]) OFFICE VISIT, NEW - LEVEL 4 Diagnosis: Essential (primary) hypertension[ICD10: I10] Diagnosis: Actinic keratosis[ICD10: L57.0] Diagnosis: Generalized anxiety disorder[ICD10: F41.1] Diagnosis: Major depressive disorder, recurrent, moderate[ICD10: F33.1] Yen Lieberman MD, [facility] CPT-4: 57228 05/28/2015 Plan of Care Planned Activity Notes Codes Status Date Visit Plan: Left knee pain, Pre-op surgi lux clearance - Dr. Lieberman in to evaluate pt - OK for surgery - pt is to notify clinic with any changes in the current treatment plan. 11/28/2019 Appointment: Yen Palomino WPtel: [facility] [place] (30 min) Complex 11/28/2019 Patient Education: Patient Medication Summary Completed 11/28/2019 Appointment: Elisabeth Lieberman WPtel: [facility] (15 min) Moderate 11/25/2019 Visit Plan: Spider bite - improving - al most resolved - pt is to finish RX as ordered and notify clinic if symptoms do not improve, if they worsen, or with any changes, questions, or concerns. 09/23/2019 Patient Education: Patient Medication Summary Completed 09/23/2019 Appointment: Yen Palomino WPtel: [address] [facility] (30 min) Complex 09/20/2019 Patient Education: Patient Medication Summary Completed 09/20/2019 Visit Plan: Spider bite/Cellulitis - The patient was instructed in appropriate wound care. The patient was instructed to use the antibiotic ointment as per RX. The patient is to call for any change in symptoms, increase in size of the lesion, increase in pain, worsening redness, warmth, discharge. Shingles - Herpes Zoster - acute in onset - pt started on acyclovir and instructed to call if symptoms worsen or if the pt is concerned about the symptoms. Pt has been advised to avoid contact with persons who may be , or infants, or immunocompromised individuals. Pt has been instructed that shingles will cont inue to break out and eventually scab over a two week period, until all of the vesicles are scabbed, the pt is to be considered contagious. ER follow up - The pt is to use prn antiinflammatories to manage acute pain. The patient is to call the office if the pain is worsening or does not improve. 09/16/2019 Appointment: Yen Palomino WPtel: [phone] [facility] (30 min) Complex 09/16/2019 Patient Education: Patient Medication Summary Completed 09/16/2019 Care Plan: Cbc With Differential Pending 09/16/2019 Care Plan: Comp Metabolic Pending Care Plan: Lipid Pending 09/16/2019 Care Plan: Tsh Pending 09/16/2019 Visit Plan: Right Leg/foot pain - pt has hx of this type of symptom in the past with improvement in her symptoms after having traction - I have Rx written for a Referral for physical therapy at the [facility] in [facility]. phone [phone] fax [phone]. Hypertension - well controlled - continue with current medications, continue with no added salt diet. Pt has been encouraged to exercise daily. The pt has been advised to call the office if there are any acute concerns about change in blood pressure readings at home. OA of knee - planning surgical intervention on August 07 - ekg, chest xray, labs ordered per request of Orthopedic surgeon. 07/22/2019 Appointment: Elisabeth Lieberman WPtel: [facility] ([facility] min[facility] Complex 07/22/2019 Patient Education: Patient Medication Summary Completed 07/22/2019 Patient Education: Hypertension Completed 07/22/2019 Care Plan: CHEST X-RAY 2VW FRONTAL&LATL LOINC : 09233-6 Pending 07/22/2019 Care Plan: COMPLETE CBC AUTOMATED LOINC : 04883-2 Pending 07/22/2019 Care Plan: URINALYSIS NONAUTO W/O SCOPE LOINC : 84433-4 Ordered 07/22/2019 Appointment: Yen Palomino WPtel: [address] [place], [place] [id number] [place] (30 min) Complex 07/19/2019 Visit Plan: Left hip fracture - defer to ortho - pt is to continue with home health to assist with monitoring symptoms, vitals, medications, and surgical follow up - pt is to notify clinic with any changes, questions, or concerns. 04/17/2019 Appointment: Yen Palomino WPtel: [address] [place], [place] [address] (30 min) Complex 04/17/2019 Patient Education: Patient Medication Summary Completed 04/17/2019 Appointment: Yen Palomino WPtel: [address] [place] [address] [place] (30 min) Complex 08/22/2018 Patient Education: Patient Medication Summary Completed 08/22/2018 Patient Education: Back Pain Completed 08/22/2018 Appointment: Yen Palomino WPtel: [address] [place] [address] [place] (30 min) Complex 07/23/2018 Visit Plan: right foot pain - will check x-ray and treat as indicated - The pt is to use prn antiinflammatories to manage acute pain. The patient is to call the office if the pain is worsening or does not improve. 02/26/2018 Appointment: Yen Palomino WPtel: [phone] [facility] (15 min) Moderate 02/26/2018 Patient Education: Patient Medication Summary Completed 02/26/2018 Care Plan: Referral Order SNOMED-CT : [id number] Pending 08/02/2017 Visit Plan: Esophageal Reflux - the gera ent has been counseled against excessive intake of caffeine, spicy foods, peppermint, and cinnamon - all of which can exacerbate esophageal reflux. The patient is to take medications as prescribed and call the office if the symptoms are not improving. Constipation - uncontrolled - I have discussed with the patient the need for adequate fiber and water intake to facilitate soft, easily passed stools. The pt noted understanding of our conversation. I have given the patient a recipe for "power pudding" - equal parts, bran flakes, prune juice, and apple sauce. The pt is to call if symptoms not improved on this regimen. 08/01/2017 Appointment: Yen Palomino WPtel: [address] [facility] (15 min) Moderate 08/01/2017 Patient Education: Patient Medication Summary Completed 08/01/2017 Visit Plan: Hypertension - well controll ed - continue with current medications, continue with no added salt diet. Pt has been encouraged to exercise daily. The pt has been advised to call the office if there are any acute concerns about change in blood pressure readings at home. Constipation - uncontrolled - I have discussed with the patient the need for adequate fiber and water intake to facilitate soft, easily passed stools. The pt noted understanding of our conversation. I have given the patient a recipe for "power pudding" - equal parts, bran flakes, prune juice, and apple sauce. The pt is to call if symptoms not improved on this regimen. 2016 Appointment: [facility] [facility] (15 min) Moderate 2016 Patient Education: Patient Medication Summary Completed 2016 Patient Education: Hypertension Completed 2016 Appointment: Yen Palomino WPtel: [facility] [facility] - Annual Wellness Visit 10/07 Appointment: Yen Palomino WPtel: [phone] [facility] (30 min) Complex 10/14/2016 Visit Plan: Hypertension - well controll ed - continue with current medications, continue with no added salt diet. Pt has been encouraged to exercise daily. The pt has been advised to call the office if there are any acute concerns about change in blood pressure readings at home. Chronic Depression and anxiety - the pt has symptoms of chronic anxiety and depression that have been fairly well controlled since the last office visit. The pt has expected periods of exacerbation with abatement of the symptoms with change in situational exposure. No change in current medications. Chronic constipation - pt to restart linzess. 09/21/2016 Appointment: Elisabeth Lieberman WPtel: [facility]5 [facility] (15 min) Moderate 09/21/2016 Patient Education: Patient Medication Summary Completed 09/21/2016 Patient Education: Obesity Completed 0 09/21/2016 Patient Education: Hypertension Completed 09/21/2016 Visit Plan: Hypertension - well controll ed - continue with current medications, continue with no added salt diet. Pt has been encouraged to exercise daily. The pt has been advised to call the office if there are any acute concerns about change in blood pressure readings at home. Insomnia - pt instructed to start on Melatonin 08/24/2016 Appointment: Elisabeth Lieberman WPtel: [facility]5 [facility] (15 min) Moderate 08/24/2016 Patient Education: Patient Medication Summary Completed 08/24/2016 Patient Education: Obesity Completed 0 08/24/2016 Visit Plan: URI - Pt advised to increase fluids, vitamin C. Discussed natural and expected course of this diagnosis and need to alert me if symptoms do not follow expected course, or if any worse. RX sent to patient's pharmacy. Sinusitis - Pt has acute infection - pain in face, maxillary region, Pt informed to use decongestant, RX given to patient, sinus rinses also recommended. Call if symptoms do not show improvement. 03/07/2016 Patient Education: Patient Medication Summary Completed 03/07/2016 Patient Education: Obesity Completed 1 Visit Plan: Hypertension - well controll ed - continue with current medications, continue with no added salt diet. Pt has been encouraged to exercise daily. The pt has been advised to call the office if there are any acute concerns about change in blood pressure readings at home. Chronic Depression and anxiety - the pt has symptoms of chronic anxiety and depression that have been fairly well controlled since the last office visit. The pt has expected periods of exacerbation with abatement of the symptoms with change in situational exposure. No change in current medications. 12/24/2015 Patient Education: Patient Medication Summary Completed 12/24/2015 Patient Education: Obesity Completed 0 12/24/2015 Patient Education: Hypertension Completed 12/24/2015 Appointment: (30 min) Complex 11/30/2015 Visit Plan: Well Adult - pt was counsele d about diet, exercise, and encouraged to follow a heart healthy diet and increase activity level. The patient was instructed to RTC yearly for well adult exams and PRN for acute illnesses. The pt was also instructed to have yearly labs for check of cholesterol, thyroid, chem panel, CBC, and renal functioning. Hypertension - well controlled - continue with current medications, continue with no added salt diet. Pt has been encouraged to exercise daily. The pt has been advised to call the office if there are any acute concerns about change in blood pressure readings at home. Cryotherapy to [place] - 2 on left forearm, 1 on right hand - pt tolerated procedure well. Anxiety/Depression - pt states that she used to be on Paxil 10mg but has been off for several years. Pt states that she had several deaths in her family last year. Pt would like to think about starting it again and that she will let us know. 05/28/2015 Appointment: (S) New Patient 05/28/2015 Patient Education: Patient Medication Summary Completed 05/28/2015 Patient Education: Hypertension Completed 05/28/2015 Patient Education: Obesity Completed 0 05/28/2015 App[facility]ment: [facility]el[phone] [facility] [place] (S) New Patient 03/02/2015 Referral: Nick Coleman pt will be called to schedule appt Initiated Referral: Nick Coleman Referral Initiated Instructions Comment Date . Left knee pain, Pre-op surgical cleara nce - Dr. Lieberman in to evaluate pt - OK for surgery - pt is to notify clinic with any changes in the current treatment plan. 11/28/2019 . Spider bite - improving - almost resol evon - pt is to finish RX as ordered and notify clinic if symptoms do not improve, if they worsen, or with any changes, questions, or concerns. 09/23/2019 will start doxycycline 100mg twice a day x 10 days - antibiotic for the spider bite - take probiotic while on the antibiotic will send naproxen 500mg twice a day x 2 days then as needed for rib pain will start on valacyclovir to treat for shingles keep an eye on the spider bite and it is not improving we will have to start you on dapsone check routine labs in 2 weeks let me know if your spider bite is not improving or if it is getting worse and I will see it again let me know if your rib pain is not improving and we will repeat an x-ray if needed . Spider bite/Cellulitis - The patient w as instructed in appropriate wound care. The patient was instructed to use the antibiotic ointment as per RX. The patient is to call for any change in symptoms, increase in size of the lesion, increase in pain, worsening redness, warmth, discharge. Shingles - Herpes Zoster - acute in onset - pt started on acyclovir and instructed to call if symptoms worsen or if the pt is concerned about the symptoms. Pt has been advised to avoid contact with persons who may be , or infants, or immunocompromised individuals. Pt has been instructed that shingles will continue to break out and eventually scab over a two week period, until all of the vesicles are scabbed, the pt is to be considered contagious. ER follow up - The pt is to use prn antiinflammatories to manage acute pain. The patient is to call the office if the pain is worsening or does not improve. 09/16/2019 tonic water 4 ounce twice daily. . Right Leg/foot pain - pt has hx of thi s type of symptom in the past with improvement in her symptoms after having traction - I have Rx written for a Referral for physical therapy at the [facility] in [place] - traction. phone [phone] fax [phone]. Hypertension - well controlled - continue with current medications, continue with no added salt diet. Pt has been encouraged to exercise daily. The pt has been advised to call the office if there are any acute concerns about change in blood pressure readings at home. OA of knee - planning surgical intervention on August 07 - ekg, chest xray, labs ordered per request of Orthopedic surgeon. 07/22/2019 . Left hip fracture - defer to ortho - p t is to continue with home health to assist with monitoring symptoms, vitals, medications, and surgical follow up - pt is to notify clinic with any changes, questions, or concerns. 04/17/2019 Lyrica - twice a day - nerve pain Flexeril start tonight - its a muscle relaxer - it will make you sleepy acyclovir - to treat for possible shingles x-ray today. right foot pain - will check x-ray and treat as indicated - The pt is to use prn antiinflammatories to manage acute pain. The patient is to call the office if the pain is worsening or does not improve. 02/26/[address] Coleman for colonoscop y Start nexium over the counter daily x 2 weeks - let me know if no improvement. . Esophageal Reflux - the patient has been counseled against excessive intake of caffeine, spicy foods, peppermint, and cinnamon - all of which can exacerbate esophageal reflux. The patient is to take medications as prescribed and call the office if the symptoms are not improving. Constipation - uncontrolled - I have discussed with the patient the need for adequate fiber and water intake to facilitate soft, easily passed stools. The pt noted understanding of our conversation. I have given the patient a recipe for "power pudding" - equal parts, bran flakes, prune juice, and apple sauce. The pt is to call if symptoms not improved on this regimen. 08/01/2017 . Hypertension - well controlled - arlet nue with current medications, continue with no added salt diet. Pt has been encouraged to exercise daily. The pt has been advised to call the office if there are any acute concerns about change in blood pressure readings at home. Constipation - uncontrolled - I have discussed with the patient the need for adequate fiber and water intake to facilitate soft, easily passed stools. The pt noted understanding of our conversation. I have given the patient a recipe for "power pudding" - equal parts, bran flakes, prune juice, and apple sauce. The pt is to call if symptoms not improved on this regimen. 2016 . Hypertension - well controlled - arlet nue with current medications, continue with no added salt diet. Pt has been encouraged to exercise daily. The pt has been advised to call the office if there are any acute concerns about change in blood pressure readings at home. Chronic Depression and anxiety - the pt has symptoms of chronic anxiety and depression that have been fairly well controlled since the last office visit. The pt has expected periods of exacerbation with abatement of the symptoms with change in situational exposure. No change in current medications. Chronic constipation - pt to restart linzess. 09/21/2016 Melatonin extended release - 3mg, 5mg or 10mg - i would start with the 5mg dose. . Hypertension - well controlled - arlet nue with current medications, continue with no added salt diet. Pt has been encouraged to exercise daily. The pt has been advised to call the office if there are any acute concerns about change in blood pressure readings at home. Insomnia - pt instructed to start on Melatonin 08/24/2016 . URI - Pt advised to increase fluids, v itamin C. Discussed natural and expected course of this diagnosis and need to alert me if symptoms do not follow expected course, or if any worse. RX sent to patient's pharmacy. Sinusitis - Pt has acute infection - pain in face, maxillary region, Pt informed to use decongestant, RX given to patient, sinus rinses also recommended. Call if symptoms do not show improvement. 03/07/2016 contrave - the one with wellbutrin and t he naloxone - this can cause nausea belviq - works at the brain to help decrease hunger hormone. saxenda - the injectable weight loss medication . Hypertension - well controlled - arlet nue with current medications, continue with no added salt diet. Pt has been encouraged to exercise daily. The pt has been advised to call the office if there are any acute concerns about change in blood pressure readings at home. Chronic Depression and anxiety - the pt has symptoms of chronic anxiety and depression that have been fairly well controlled since the last office visit. The pt has expected periods of exacerbation with abatement of the symptoms with change in situational exposure. No change in current medications. 12/24/2015 . Well Adult - pt was counseled about di et, exercise, and encouraged to follow a heart healthy diet and increase activity level. The patient was instructed to RTC yearly for well adult exams and PRN for acute illnesses. The pt was also instructed to have yearly labs for check of cholesterol, thyroid, chem panel, CBC, and renal functioning. Hypertension - well controlled - continue with current medications, continue with no added salt diet. Pt has been encouraged to exercise daily. The pt has been advised to call the office if there are any acute concerns about change in blood pressure readings at home. Cryotherapy to [place] - 2 on left forearm, 1 on right hand - pt tolerated procedure well. Anxiety/Depression - pt states that she used to be on Paxil 10mg but has been off for several years. Pt states that she had several deaths in her family last year. Pt would like to think about starting it again and that she will let us know. 05/28/2015 Medical Equipment No Medical Equipment data Health Concerns Section Health Concerns data not found Goals Section Goals data not found Interventions Section Interventions data not found Health Status Evaluations/Outcomes Section Health Status Evaluations/Outcomes data not found Advance Directives No Advance Directive data
--- OUTSIDE RECORDS SUMMARY | 2021-05-17 07:59 | XMS REPORT | CCD ---
Author Author Karma Palomino Organization Elisabeth Lieberman MD, [facility] Address [address] [place] [address] Phone Care Team Providers Care Piano Player Name Role Phone PP Unavailable CCM Unavailable Summary Purpose Interface Exchange Insurance Providers Payer name Policy type / Coverage type Covered democrat ID Effective Begin Date Effective End Date [place] [employer] Medicare Part B [id number] Unknown AARP Medicare Part B [id number] 2019 Unknown Family history Brother Diagnosis Age [...] Unknown Retired 05/28/[address]: [id number] Never smoker 05/28/2015 Alcohol history Unknown occasionally drinks alcohol 05/09 Allergies, Adverse Reactions, Alerts Substance Reaction Codes Entered Date Inactivated Date Status NO KNOWN ALLERGIES Unknown 05/28/2015 No Inactive Date Active Problems Condition Codes Effective Dates Condition Status Sciatica Unknown 04/20/2021 Active Encounter for general adult medical examination with a bnormal findings ICD-10: Z00.01 ICD-9: V70.0 04/20/2021 Active Essential (primary) hypertension ICD-10: I10 ICD-9: 401.9 12/23/2015 Active Low back pain with right-sided sciatica ICD-10: M54.41 ICD-9: 724.3 04/20/2021 Active Osteoporosis ICD-10: M81.0 ICD-9: 733.00 04/20/2021 Active Left knee pain ICD-10: M25.562 ICD-9: 719.46 [...] Shingles ICD-10: B02.9 ICD-9: 053.9 09/16/2019 Active Generalized anxiety disorder ICD-10: F41.1 ICD-9: [...] 471 Take 1 Tablet(s) Oral every day 04/20/2021 07/18/2021 Active flecainide 100 mg tablet RxNorm: 238878 TAKE 1 TABLET BY MOUTH TWICE DAILY 04/20/2021 04/14/2022 Active tier 1 approved unti l may 07 2020. approval number [id number] gabapentin 600 mg tablet RxNorm: 052128 TAKE 1 TABLET B Y MOUTH THREE TIMES DAILY 04/20/2021 08/17/2021 Active tier 1 approved until may 07 2020. approval number is [id number] losartan 100 mg-hydrochlorothiazide 25 mg tablet RxNorm: 979 471 Take 1 Tablet(s) Oral every day 04/12/2021 04/19/2021 Inactive meloxicam 15 mg tablet RxNorm: 100115 TAKE 1 TABLET BY MOUTH EV SUDARSHAN08/07/2020 08/02/2021 Active flecainide 100 mg tablet RxNorm: 308903 TAKE 1 TABLET BY MOUTH TWICE DAILY 06/04/2020 04/19/2021 Inactive tier 1 approved unti l may 07 2020. approval number [id number] gabapentin 600 mg tablet RxNorm: 110951 TAKE 1 TABLET B Y MOUTH THREE TIMES DAILY 06/04/2020 10/02/2020 Inactive tier 1 approved until may 07 2020. approval number is [id number] gabapentin 600 mg tablet RxNorm: 339973 TAKE 1 TABLET B Y MOUTH THREE TIMES DAILY 05/20/2020 06/03/2020 Inactive needs PA for low er tier- please send info to office. flecainide 100 mg tablet RxNorm: 180442 TAKE 1 TABLET BY MOUTH TWICE DAILY 05/20/2020 06/03/2020 Inactive needs PA for lower t ier- please send info to office gabapentin 600 mg tablet RxNorm: 954312 TAKE 1 TABLET B Y MOUTH THREE TIMES DAILY 04/07/2020 05/19/2020 Inactive needs PA- please send info to office. flecainide 100 mg tablet RxNorm: 025806 TAKE 1 TABLET BY MOUTH TWICE DAILY 04/07/2020 05/19/2020 Inactive needs PA- please sen d info to office losartan 100 mg-hydrochlorothiazide 25 mg tablet RxNorm: 979 471 TAKE 1 TABLET BY MOUTH EVERY DAY 04/06/2020 04/06/2020 Inactive meloxicam 15 mg tablet RxNorm: 270816 TAKE 1 TABLET BY MOUTH EV SUDARSHAN DAY 02/04/2020 05/03/2020 Inactive clindamycin HCl 300 mg capsule RxNorm: 712380 1 Capsule (s) Oral three times a day 01/06/2020 01/13/2020 Inactive Augmentin 500 mg-125 mg tablet RxNorm: 692290 1 Tablet( s) Oral three times a day 01/06/2020 01/16/2020 Inactive gabapentin 600 mg tablet RxNorm: 808074 TAKE 1 TABLET B Y MOUTH THREE TIMES DAILY 11/14/2019 03/12/2020 Inactive losartan 100 mg-hydrochlorothiazide 25 mg tablet RxNorm: 979 471 TAKE 1 TABLET BY MOUTH EVERY DAY 10/18/2019 04/05/2020 Inactive flecainide 100 mg tablet RxNorm: 173076 TAKE 1 TABLET BY MOUTH TWICE DAILY 09/23/2019 04/06/2020 Inactive Xanax 0.25 mg tablet RxNorm: 883675 1 Tablet(s) Oral ev sudarshan day as needed anxiety 09/20/2019 No Stop Date Active dapsone 25 mg tablet RxNorm: 853523 1 Tablet(s) Oral two times a da y 09/20/2019 09/27/2019 Inactive naproxen 500 mg tablet RxNorm: 946054 1 Tablet(s) Oral two time s a day 09/20/2019 09/24/2019 Inactive mupirocin 2 % topical ointment RxNorm: 428166 1 Applica tion Topical two times a day 09/16/2019 No Stop Date Active naproxen 500 mg tablet RxNorm: 728565 1 Tablet(s) Oral two time s a day 09/16/2019 09/19/2019 Inactive doxycycline hyclate 100 mg capsule RxNorm: 5481450 1 Cap heavenly(s) Oral two times a day 09/16/2019 09/26/2019 Inactive valacyclovir 1 gram tablet RxNorm: 745915 1 Tablet(s) Oral thre e times a day 09/16/2019 09/23/2019 Inactive gabapentin 600 mg tablet RxNorm: 621534 TAKE 1 TABLET B Y MOUTH THREE TIMES DAILY 09/03/2019 11/01/2019 Inactive meloxicam 15 mg tablet RxNorm: 279961 TAKE 1 TABLET BY MOUTH DAILY 08/05/2019 02/03/2020 Inactive diclofenac 1 % topical gel RxNorm: 466110 1-2 Gram(s) Topical t hree times a day 07/22/2019 08/21/2019 Inactive gabapentin 600 mg tablet RxNorm: 865332 1 Tablet(s) Oral three times a day 05/30/2019 05/29/2019 Inactive gabapentin 600 mg tablet RxNorm: 483610 1 Tablet(s) Oral three times a day 05/30/2019 07/29/2019 Inactive hydrochlorothiazide 25 mg tablet RxNorm: 678770 1 Tablet(s) PO barby y 01/04/2019 01/03/2019 Inactive hydrochlorothiazide 25 mg tablet RxNorm: 052406 1 Tablet(s) PO barby y 01/04/2019 04/19/2021 Inactive losartan 100 mg tablet RxNorm: 095026 1 Tablet(s) PO daily 01/05/2004/19/2021 Inactive losartan 100 mg tablet RxNorm: 710968 1 Tablet(s) PO daily 01/05/20 19 01/03/2019 Inactive losartan 100 mg-hydrochlorothiazide 25 mg tablet RxNorm: 979 471 Tablet(s) TABLET(S) TAKE 1 TABLET BY MOUTH EVERY DAY 01/01/2019 06/29/2019 Inact carlos meloxicam 15 mg tablet RxNorm: 291760 1 TABLET(S) PO DAILY 1 TA BLET(S) PO DAILY 2018 08/04/2019 Inactive Lyrica 150 mg capsule RxNorm: 617961 1 Capsule(s) PO BID 10/18/2018 1 Inactive Lyrica 150 mg capsule RxNorm: 333554 1 Capsule(s) PO BID 10/18/2018 0 10/17/2018 Inactive flecainide 100 mg tablet RxNorm: 688491 1 TABLET(S) PO BID TABLET(S) TAKE 1 TABLET BY MOUTH TWICE DAILY 08/29/2018 08/23/2019 Inactive Carafate 1 gram tablet RxNorm: 237616 1 TABLET(S) PO QID 08/23/2018 0 10/21/2018 Inactive Patient requests 90 days supply Protonix 40 mg tablet,delayed release RxNorm: 559302 1 TABLET(S ) PO DAILY 08/23/2018 10/21/2018 Inactive Patient requests 9 0 days supply Protonix 40 mg tablet,delayed release RxNorm: 853925 1 Tablet(s ) PO daily 08/22/2018 08/21/2018 Inactive Carafate 1 gram tablet RxNorm: 020114 1 Tablet(s) PO QID 08/22/2018 0 08/22/2018 Inactive Linzess 72 mcg capsule RxNorm: 9964571 1 Capsule(s) PO daily 201811/19/2018 Inactive Protonix 40 mg tablet,delayed release RxNorm: 735084 1 Tablet(s ) PO daily 08/22/2018 08/22/2018 Inactive Linzess 72 mcg capsule RxNorm: 3847450 1 Capsule(s) PO daily 201808/21/2018 Inactive Carafate 1 gram tablet RxNorm: 130184 1 Tablet(s) PO QID 08/22/2018 0 08/21/2018 Inactive cyclobenzaprine 5 mg tablet RxNorm: 023516 1-2 Tablet(s) PO TID 08/26/2018 Inactive losartan 100 mg-hydrochlorothiazide 25 mg tablet RxNorm: 979 471 TABLET(S) TAKE 1 TABLET BY MOUTH EVERY DAY 06/25/2018 12/21/2018 Inactive cyclobenzaprine 5 mg tablet RxNorm: 244775 1-2 Tablet(s) PO TID 04/01/2018 Inactive Dexilant 60 mg capsule, delayed release RxNorm: 716719 1 Capsul e(s) PO daily 03/09/2018 03/08/2018 Inactive Dexilant 60 mg capsule, delayed release RxNorm: 660675 1 Capsul e(s) PO daily 03/09/2018 04/07/2018 Inactive Lyrica 75 mg capsule RxNorm: 692620 1 Capsule(s) PO TID 03/09/2018 Inactive amoxicillin 500 mg capsule RxNorm: 596608 1 Capsule(s) PO TID 03/0503/11/2018 Inactive cyclobenzaprine 5 mg tablet RxNorm: 166389 1-2 Tablet(s) PO TID 03/02/2018 Inactive acyclovir 800 mg tablet RxNorm: 165051 1 Tablet(s) PO TID 02/26/2018 03/03/2018 Inactive Lyrica 75 mg capsule RxNorm: 759942 1 Capsule(s) PO TID 02/26/2018 Inactive meloxicam 15 mg tablet RxNorm: 623150 1 TABLET(S) PO DAILY 1 TA BLET(S) PO DAILY 12/08/2017 12/02/2018 Inactive flecainide 100 mg tablet RxNorm: 681670 1 TABLET(S) PO BID TABLET(S) TAKE 1 TABLET BY MOUTH TWICE DAILY 09/12/2017 08/28/2018 Inactive meloxicam 15 mg tablet RxNorm: 994723 1 TABLET(S) PO DAILY 1 TA BLET(S) PO DAILY 09/11/2017 12/18/2018 Inactive meloxicam 15 mg tablet RxNorm: 171871 1 Tablet(s) PO daily 1 TA BLET(S) PO DAILY 09/07/2017 09/10/2017 Inactive Bactrim DS 800 mg-160 mg tablet RxNorm: 799407 1 Tablet(s) PO BID 0 07/03/2017 07/09/2017 Inactive Bactrim DS 800 mg-160 mg tablet RxNorm: 727787 1 Tablet(s) PO BID 0 07/03/2017 07/02/2017 Inactive losartan 100 mg-hydrochlorothiazide 25 mg tablet RxNorm: 979 471 Tablet(s) TAKE 1 TABLET BY MOUTH EVERY DAY 06/08/2017 03/04/2018 Inactive losartan 100 mg-hydrochlorothiazide 25 mg tablet RxNorm: 979 471 1 TABLET(S) PO DAILY TABLET(S) TAKE 1 TABLET BY MOUTH EVERY DAY 12/05/2016 06/07/2017 Inactive amoxicillin 500 mg capsule RxNorm: 278103 1 Capsule(s) PO TID 10/1410/23/2016 Inactive losartan 100 mg-hydrochlorothiazide 25 mg tablet RxNorm: 979 471 1 Tablet(s) PO daily TABLET(S) TAKE 1 TABLET BY MOUTH EVERY DAY 08/24/2016 12/04/2016 Inactive meloxicam 15 mg tablet RxNorm: 069014 1 Tablet(s) PO daily 1 TA BLET(S) PO DAILY 08/24/2016 09/06/2017 Inactive flecainide 100 mg tablet RxNorm: 160024 1 Tablet(s) PO BID TABLET(S) TAKE 1 TABLET BY MOUTH TWICE DAILY 08/24/2016 09/11/2017 Inactive flecainide 100 mg tablet RxNorm: 937592 TABLET(S) TAKE 1 TABLET BY MOUTH TWICE DAILY 08/02/2016 08/23/2016 Inactive flecainide 100 mg tablet RxNorm: 878545 TABLET(S) TAKE 1 TABLET BY MOUTH TWICE DAILY 07/04/2016 08/01/2016 Inactive flecainide 100 mg tablet RxNorm: 045851 TABLET(S) TAKE 1 TABLET BY MOUTH TWICE DAILY 05/30/2016 06/28/2016 Inactive meloxicam 15 mg tablet RxNorm: 676522 1 TABLET(S) PO DAILY 05/18/19 17 08/23/2016 Inactive losartan 50 mg-hydrochlorothiazide 12.5 mg tablet RxNorm: 97 9468 TABLET(S) TAKE 1 TABLET BY MOUTH EVERY DAY 05/18/2016 06/16/2016 Inactive meloxicam 15 mg tablet RxNorm: 533396 Tablet(s) TAKE 1 TABLET BY MOUTH EVERY DAY 05/17/2016 07/31/2017 Inactive losartan 50 mg-hydrochlorothiazide 12.5 mg tablet RxNorm: 97 9468 Tablet(s) TAKE 1 TABLET BY MOUTH EVERY DAY 05/17/2016 07/31/2017 Inactive amoxicillin 500 mg capsule RxNorm: 780668 1 Capsule(s) PO TID 03/0703/13/2016 Inactive Kenalog 40 mg/mL suspension for injection RxNorm: 0507548 1 Mill iliter(s) Inj 03/07/2016 03/07/2016 Inactive Zithromax Z-Feliciano 250 mg tablet RxNorm: 248284 1 Tablet(s) PO 016 08/23/2016 Inactive Wellbutrin XL 150 mg 24 hr tablet, extended release RxNorm: 707661 1 Tablet(s) PO daily 12/24/2015 08/23/2016 Inactive losartan 50 mg-hydrochlorothiazide 12.5 mg tablet RxNorm: 97 9468 TAKE 1 TABLET BY MOUTH EVERY DAY 11/17/2015 12/16/2015 Inactive flecainide 100 mg tablet RxNorm: 036279 TAKE 1 TABLET BY MOUTH TWICE DAILY 11/17/2015 07/31/2017 Inactive losartan 50 mg-hydrochlorothiazide 12.5 mg tablet RxNorm: 97 9468 TABLET(S) TAKE 1 TABLET BY MOUTH EVERY DAY 11/17/2015 07/31/2017 Inactive Serafin bakernt requests 90 days supply meloxicam 15 mg tablet RxNorm: 042145 TAKE 1 TABLET BY MOUTH 11/17/2015 12/16/2015 Inactive meloxicam 15 mg tablet RxNorm: 845952 1 Tablet(s) PO daily 11/16/19 16 11/16/2015 Inactive flecainide 100 mg tablet RxNorm: 361477 Tablet(s) TAKE 1 TABLET BY MOUTH TWICE DAILY 11/16/2015 05/13/2016 Inactive losartan 50 mg-hydrochlorothiazide 12.5 mg tablet RxNorm: 97 9468 Tablet(s) TAKE 1 TABLET BY MOUTH EVERY DAY 11/16/2015 11/16/2015 Inactive losartan 50 mg-hydrochlorothiazide 12.5 mg tablet RxNorm: 97 9468 TAKE 1 TABLET BY MOUTH EVERY DAY 10/15/2015 11/13/2015 Inactive flecainide 100 mg tablet RxNorm: 510614 TAKE 1 TABLET BY MOUTH TWICE DAILY 10/08/2015 11/06/2015 Inactive losartan 50 mg-hydrochlorothiazide 12.5 mg tablet RxNorm: 97 9468 TAKE 1 TABLET BY MOUTH EVERY DAY 08/20/2015 09/18/2015 Inactive meloxicam 15 mg tablet RxNorm: 565728 1 Tablet(s) PO daily 07/20/19 16 11/15/2015 Inactive flecainide 100 mg tablet RxNorm: 833301 1 Tablet(s) PO BID 07/20/19 16 09/17/2015 Inactive aspirin 81 mg chewable tablet RxNorm: 976136 1 Tablet(s) PO daily 0 05/28/2015 06/26/2015 Inactive Vitamin D3 2,000 unit tablet RxNorm: 320093 1 Tablet(s) PO daily 06/26/2015 Inactive aspirin 81 mg chewable tablet RxNorm: 915831 1 Tablet(s) PO daily 0 05/28/2015 05/27/2015 Inactive flecainide 100 mg tablet RxNorm: 770500 1 Tablet(s) PO BID 05/28/19 16 06/26/2015 Inactive losartan 50 mg-hydrochlorothiazide 12.5 mg tablet RxNorm: 97 9468 1 Tablet(s) PO daily 05/28/2015 06/26/2015 Inactive meloxicam 15 mg tablet RxNorm: 300734 1 Tablet(s) PO daily 05/28/19 16 06/26/2015 Inactive meloxicam 15 mg tablet RxNorm: 404546 1 Tablet(s) PO daily 05/22/19 16 05/27/2015 Inactive meloxicam 15 mg tablet RxNorm: 614690 1 Tablet(s) PO daily 05/22/19 16 05/21/2015 Inactive Linzess oral RxNorm: 0053021 oral 12/20/2016 Active Vitamin D3 2,000 unit tablet RxNorm: 795016 1 Tablet(s) PO daily 05/27/2015 Inactive losartan 50 mg-hydrochlorothiazide 12.5 mg tablet RxNorm: 97 9468 1 Tablet(s) PO daily 05/28/2015 05/27/2015 Inactive flecainide 100 mg tablet RxNorm: 668587 1 Tablet(s) PO BID 05/28/19 16 05/27/2015 Inactive Medication Administered Medication Codes Instructions Start Date Status Kenalog 40 mg/mL suspension for injection RxNorm: 1974842 1Milli liter 03/07/2016 No longer Active Immunizations [...] 01/05/20 17 Unknown Cbc With Differential Ord2 Garza% 6.8 % 01/05/20 17 Unknown Cbc With [...] K/ul 017 Unknown Cbc With Differential Ord2 Garza ABS# 0.5 K/ul 01/05/20 17 Unknown Cbc With Differential Ord2 Eos ABS# 0.3 K/ul 01/05/20 17 Unknown Cbc With Differential Ord2 Baso ABS# 0.0 K/ul 01/05/20 17 Unknown Comp Metabolic Xah575 NA 144 mEq/L 01/04/2017 Unkn own Comp Metabolic Tnq832 K 3.7 mEq/L 01/04/2017 Unkn own Comp Metabolic Vqt823 CL 106 mEq/L 01/04/2017 Unkn own Comp Metabolic Sem481 CO2 28.0 mEq/L 01/04/2017 Unk nown Comp Metabolic Wfd942 ANION GAP 14 01/04/2017 Unkn own Comp Metabolic Ilt235 GLUCOSE 80 mg/dL 01/04/2017 Unkn own Comp Metabolic Tia216 Creat 0.9 mg/dL 01/04/2017 Unkn own Comp Metabolic Aqp248 eGFR 65 ml/min/1.73m2 01/05/20 17 Unknown Comp Metabolic Bsm196 BUN 18 mg/dL 01/04/2017 Unkn own Comp Metabolic Daq564 B/C Ratio 19.8 Ratio 01/04/2017 Unk nown Comp Metabolic Asp010 CALCIUM 9.3 mg/dL 01/04/2017 Unkn own Comp Metabolic Omu596 ALK PHOS 65 U/L 01/04/2017 Unkn own Comp Metabolic Ezq523 AST(SGOT) 16 U/L 01/04/2017 Unkn own Comp Metabolic Nav867 ALT(SGPT) 18 U/L 01/04/2017 Unkn own Comp Metabolic Wvh744 BILI T 1.2 mg/dL 01/04/2017 Unkn own Comp Metabolic Fgh050 ALBUMIN 3.9 g/dL 01/04/2017 Unkn own Comp Metabolic Lar479 TPRO 6.1 g/dL 01/04/2017 Unkn own Comp Metabolic Kot302 GLOB 2.2 g/dL 01/04/2017 Unkn own Comp Metabolic Bis134 A/G Ratio 1.8 Ratio 01/04/2017 Unkn own Comp Metabolic Dqb638 Osmo 288 mOsmo 01/04/2017 Unkn own Tsh Ord6 hTSH II 1.22 uIU/mL 01/04/2017 Unknown Comp Metabolic Xbs206 NA 139 mEq/L 12/24/2015 Unkn own Comp Metabolic Ifo706 K 3.7 mEq/L 12/24/2015 Unkn own Comp Metabolic Now152 CL 105 mEq/L 12/24/2015 Unkn own Comp Metabolic Bor158 CO2 30.0 mEq/L 12/24/2015 Unk nown Comp Metabolic Emh366 ANION GAP 8 12/24/2015 Unkn own Comp Metabolic Asz572 GLUCOSE 83 mg/dL 12/24/2015 Unkn own Comp Metabolic Enw976 Creat 0.9 mg/dL 12/24/2015 Unkn own Comp Metabolic Klh211 eGFR 70 ml/min/1.73m2 12/24/19 16 Unknown Comp Metabolic Ubq751 BUN 20 mg/dL 12/24/2015 Unkn own Comp Metabolic Dcr440 B/C Ratio 23.3 Ratio 12/24/2015 Unk nown Comp Metabolic Fdg275 CALCIUM 9.2 mg/dL 12/24/2015 Unkn own Comp Metabolic Xit154 ALK PHOS 65 U/L 12/24/2015 Unkn own Comp Metabolic Qnv626 AST(SGOT) 17 U/L 12/24/2015 Unkn own Comp Metabolic Znm616 ALT(SGPT) 18 U/L 12/24/2015 Unkn own Comp Metabolic Tue139 BILI T 1.1 mg/dL 12/24/2015 Unkn own Comp Metabolic Pyv578 ALBUMIN 3.9 g/dL 12/24/2015 Unkn own Comp Metabolic Tlh253 TPRO 6.1 g/dL 12/24/2015 Unkn own Comp Metabolic Eij105 GLOB 2.2 g/dL 12/24/2015 Unkn own Comp Metabolic Ket060 A/G Ratio 1.8 Ratio 12/24/2015 Unkn own Comp Metabolic Lla482 Osmo 279 mOsmo 12/24/2015 Unkn own Lipid [...] 12/24/19 16 Unknown Cbc With Differential Ord2 Garza% 8.2 % 12/24/19 16 Unknown Cbc With [...] K/ul 016 Unknown Cbc With Differential Ord2 Garza ABS# 0.4 K/ul 12/24/19 16 Unknown Cbc With Differential Ord2 Eos ABS# 0.4 K/ul 12/24/19 16 Unknown Cbc With Differential Ord2 Baso ABS# 0.0 K/ul 12/24/19 16 Unknown Tsh Ord6 hTSH II 1.45 uIU/mL 12/24/2015 Unknown Procedures Procedure Codes Date TRIAMCINOLONE ACET INJ NOS 10 mg CPT-4: J3301 016 DESTRUCT PREMALG LES 2-14 CPT-4: 24280 05/28/2015 Vital Signs Date Vital 04/20/2021 Blood Pressure 1: 144/60 Code: 8480-6 BMI: 36.7 Code: 22582-0 Heart Rate 1: 61 bpm Height: 5'4" Code: 8302-2 SpO2: 97% Temperature: 3 5.6 (C) / 96.0 (F) Weight: 214 lbs Code: 21606-7 11/28/2019 Weight: 205 lbs Code: 05161 -7 09/20/2019 Height: Code: 8302-2 Weight: Code: 294 63-7 09/16/2019 Heart Rate 1: 70 bpm Height: Code: 8302-2 SpO2: 98% Weight: Code: 92340-8 07/22/2019 Blood Pressure 1: 116/70 Code: 8480-6 BMI: 35.2 Code: 31633-0 Heart Rate 1: 54 bpm Height: 5'3" Code: 8302-2 Respiratory Rate: 16 bpm SpO2: 97% Weight: 202 lbs Code: 95368-6 04/17/2019 Blood Pressure 1: 156/70 Code: 8480-6 BMI: 32.9 Code: 85132-9 Heart Rate 1: 68 bpm Height: 5'6" Code: 8302-2 SpO2: 99% Weight: 204 lb s Code: 53224-5 08/22/2018 Blood Pressure 1: 128/64 Code: 8480-6 BMI: 31.3 Code: 32564-8 Heart Rate 1: 76 bpm Height: 5'6" Code: 8302-2 SpO2: 98% Weight: 194 lb s Code: 56488-5 02/26/2018 Blood Pressure 1: 140/72 Code: 8480-6 BMI: 33.6 Code: 68272-0 Heart Rate 1: 64 bpm Height: 5'6" Code: 8302-2 SpO2: 99% Weight: 208 lb s Code: 43707-4 08/01/2017 Blood Pressure 1: 148/82 Code: 8480-6 BMI: 37.3 Code: 54226-8 Heart Rate 1: 62 bpm Height: 5'6" Code: 8302-2 SpO2: 98% Weight: 231 lb s Code: 85215-9 2016 Blood Pressure 1: 128/64 Code: 8480-6 BMI: 38.4 Code: 54376-0 Heart Rate 1: 69 bpm Height: 5'6" Code: 8302-2 SpO2: 96% Weight: 238 lb s Code: 48222-2 09/21/2016 Blood Pressure 1: 148/90 Code: 8480-6 Bl ood Pressure 1: 138/82 Code: 8480-6 BMI: 37.9 Code: 91481-6 Heart Rate 1: 62 bpm Height: 5'6" Code: 8302-2 SpO2: 96% Weight: 235 lbs Code: 48062-3 08/24/2016 Blood Pressure 1: 164/82 Code: 8480-6 BMI: 38.3 Code: 50316-3 Heart Rate 1: 71 bpm Height: 5'6" Code: 8302-2 SpO2: 96% Weight: 237 lb s 8 oz Code: 64916-9 03/07/2016 Blood Pressure 1: 124/68 Code: 8480-6 BMI: 37.3 Code: 49188-2 Heart Rate 1: 58 bpm Height: 5'6" Code: 8302-2 SpO2: 97% Weight: 231 lb s Code: 42067-6 12/24/2015 Blood Pressure 1: 140/66 Code: 8480-6 BMI: 37.6 Code: 18816-0 Heart Rate 1: 57 bpm Height: 5'6" Code: 8302-2 SpO2: 97% Weight: 233 lb s Code: 62839-9 05/28/2015 Blood Pressure 1: 156/88 Code: 8480-6 BMI: 38.4 Code: 75246-5 Heart Rate 1: 62 bpm Height: 5'6" Code: 8302-2 Weight: 238 lbs Code: 03060 -7 Functional Status No Functional Status data Reason For Visit Reason For Visit Effective Dates Notes hypertension 04/20/2021 pre-op/surgery consult 11/28/2019 skin lesion 09/23/2019 skin lesion 09/20/2019 skin lesion 09/16/2019 pre-op/surgery consult 07/22/2019 fracture of the hip 04/17/2019 abdominal pain 08/22/2018 foot pain 02/26/2018 dyspepsia 08/01/2017 hypertension 2016 hypertension 09/21/2016 hypertension 08/24/2016 ongoing earache 03/07/2016 hypertension 12/24/2015 hypertension 05/28/2015 Encounters Encounter Performer Location Codes Date 75976 EST. PATIENT, LEVEL IV Diagnosis: Encounter for general adult medical examination with abnormal findings[ICD10: Z00.01] Diagnosis: Essential (primary) hypertension[ICD10: I10] Diagnosis: Osteoporosis[ICD10: M81.0] Diagnosis: Low back pain with right-sided sciatica[ICD10: M54.41] Fadumo Lieberman MD, [facility] CPT-4: 01349 04/20/2021 [id number] EST. PATIENT, LEVEL III Diagnosis: Left knee pain[ICD10: M25.562] Diagnosis: Pre-op evaluation[ICD10: Z01.818] Yen atkins MD, [facility] CPT-4: 19165 11/28/2019 [id number] EST. PATIENT, LEVEL II Diagnosis: Cellulitis of right wrist[ICD10: L03.113] Diagnosis: Spider bite wound, accidental or unintentional, subsequent encounter[ICD10: T63.301D] Yen Lieberman MD, [facility] CPT-4: 42740 09/23/2019 [id number] EST. PATIENT, LEVEL II Diagnosis: Cellulitis of right wrist[ICD10: L03.113] Diagnosis: Spider bite wound, accidental or unintentional, subsequent encounter[ICD10: T63.301D] Yen Lieberman MD, [facility] CPT-4: 11293 09/20/2019 39227 EST. PATIENT, LEVEL III Diagnosis: Cellulitis of right wrist[ICD10: L03.113] Diagnosis: Follow up[ICD10: Z09] Diagnosis: Spider bite wound, accidental or unintentional, initial encounter[ICD10: T63.301A] Diagnosis: Shingles[ICD10: B02.9] Yen Lieberman MD, [facility] CPT -4: 37148 09/16/2019 ([id number]) 81189 EST. PATIENT, LEVEL IV Diagnosis: Essential (primary) hypertension[ICD10: I10] Diagnosis: Generalized anxiety disorder[ICD10: F41.1] Diagnosis: Pain in right foot[ICD10: M79.671] Diagnosis: Primary osteoarthritis of left knee[ICD10: M17.12] Elisabeth Lieberman MD, [facility] CPT-4: 19360 07/22/2019 53401 EST. PATIENT, LEVEL III Diagnosis: Follow-up examination after orthopedic surgery[ICD10: Z09] Diagnosis: Hip fracture, left[ICD10: S72.002A] Yen more MD, [facility] CPT-4: 32694 04/17/2019 09115 EST. PATIENT, LEVEL IV Diagnosis: Gastro-esophageal reflux disease without esophagitis[ICD10: K21.9] Diagnosis: Low back pain[ICD10: M54.5] Diagnosis: Slow transit constipation[ICD10: K59.01] Yen Lieberman MD, [facility] CPT-4: 51144 08/22/2018 96466 EST. PATIENT, LEVEL III Diagnosis: Pain in right foot[ICD10: M79.671] Yen forte MD, [facility] CPT-4: 03666 02/26/2018 43767 EST. PATIENT, LEVEL IV Diagnosis: Gastro-esophageal reflux disease without esophagitis[ICD10: K21.9] Diagnosis: Chronic idiopathic constipation[ICD10: K59.04] Yen Lieberman MD, [facility] CPT-4: 31095 08/01/2017 00135 EST. PATIENT, LEVEL IV Diagnosis: Essential (primary) hypertension[ICD10: I10] Diagnosis: Chronic idiopathic constipation[ICD10: K59.04] Yen Lieberman MD, [facility] CPT-4: 35536 2016 ([id number]) 42150 EST. PATIENT, LEVEL IV Diagnosis: Essential (primary) hypertension[ICD10: I10] Diagnosis: Generalized anxiety disorder[ICD10: F41.1] Diagnosis: Chronic idiopathic constipation[ICD10: K59.04] Elisabeth Lieberman MD, [facility] CPT-4: 45896 09/21/2016 ([id number]) 12212 EST. 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 PATIENT, LEVEL III Diagnosis: Acute laryngopharyngitis[ICD10: J06.0] Diagnosis: Other acute sinusitis[ICD10: J01.80] [facility] CPT-4: 42546 03/07/2016 ([id number]) 51637 EST. PATIENT, LEVEL IV Diagnosis: Essential (primary) hypertension[ICD10: I10] Diagnosis: Major depressive disorder, recurrent, moderate[ICD10: F33.1] Diagnosis: Generalized anxiety disorder[ICD10: F41.1] [facility] CPT-4: 01563 12/24/2015 ([id number]) OFFICE VISIT, NEW - LEVEL 4 Diagnosis: Essential (primary) hypertension[ICD10: I10] Diagnosis: Actinic keratosis[ICD10: L57.0] Diagnosis: Generalized anxiety disorder[ICD10: F41.1] Diagnosis: Major depressive disorder, recurrent, moderate[ICD10: F33.1] [facility] CPT-4: 19757 05/28/2015 Plan of Care Planned Activity Notes Codes Status Date Visit Plan: Well Adult - pt was [...] change in blood pressure readings at home. Low back pain with sciatica - refer for PT Osteoporosis - no history of prescription treatment per patient report- schedule DEXA 04/20/2021 Patient Education: Patient Medication Summary Completed 04/20/2021 Patient Education: Hypertension Completed 04/20/2021 Care Plan: Cbc With Differential Pending 04/20/2021 Care Plan: Comp Metabolic Pending Care Plan: Lipid Pending 04/20/2021 Care Plan: Tsh Pending 04/20/2021 Visit Plan: Left knee pain, Pre-op surgi lux clearance - Dr. Lieberman in to evaluate pt - OK for surgery - pt is to notify clinic with any changes in the current treatment plan. 11/28/2019 App[phone] [place] ([facility] Complex 11/28/2019 Patient Education: Patient Medication Summary Completed 11/28/2019 Appointment: Elisabeth Lieberman WPtel: [phone] [facility] [place] (15 min) Moderate 11/25/2019 Visit Plan: Spider bite - improving - al most resolved - pt is to finish RX as ordered and notify clinic if symptoms do not improve, if they worsen, or with any changes, questions, or concerns. 09/23/2019 Patient Education: Patient Medication Summary Completed 09/23/2019 Appointment: Yen Palomino WPtel: [facility] [place] (30 min) Complex 09/20/2019 Patient Education: Patient [...] improve. 09/16/2019 Appointment: [phone] [place] ([facility] [place]) Complex 09/16/2019 Patient Education: Patient [...] a Referral for physical therapy at the [facility] in [place] - traction. phone [phone] fax [phone]. Hypertension - well controlled - continue with [...] Orthopedic surgeon. 07/22/2019 Appointment: Elisabeth Lieberman WPtel: [address] [place], [place] [address] (30 min) Complex 07/22/2019 Patient Education: Patient Medication Summary Completed 07/22/2019 Patient Education: Hypertension Completed 07/22/2019 Care Plan: CHEST X-RAY 2VW FRONTAL&LATL LOINC : 65954-2 Pending 07/22/2019 Care Plan: COMPLETE CBC AUTOMATED LOINC : 64087-5 Pending 07/22/2019 Care Plan: URINALYSIS NONAUTO W/O SCOPE LOINC : 75719-4 Ordered 07/22/2019 Appointment: Yen Palomino WPtel: [address] [place], [place] [address] (30 min) Complex 07/19/2019 Visit Plan: Left hip fracture - defer to ortho - pt is to continue with home health to assist with monitoring symptoms, vitals, medications, and surgical follow up - pt is to notify clinic with any changes, questions, or concerns. 04/17/2019 Appointment: [facility] Pal[facility]ino [facility] ([facility] Complex 04/17/2019 Patient Education: Patient Medication Summary Completed 04/17/2019 Appointment: [phone] [place] ([place]) Complex 08/22/2018 Patient Education: Patient Medication Summary Completed 08/22/2018 Patient Education: Back Pain Completed 08/22/2018 Appointment: [facility] Palomino [facility]el[facility] [place] ([facility] [place]) Complex 07/23/2018 Visit Plan: right foot pain - will check x-ray and treat as indicated - The pt is to use prn antiinflammatories to manage acute pain. The patient is to call the office if the pain is worsening or does not improve. 02/26/2018 Appointment: Yen Palomino WPtel: [facility] [place] (15 min) Moderate 02/26/2018 Patient Education: Patient Medication Summary Completed 02/26/2018 Care Plan: Referral Order SNOMED-CT : [id number] Pending 08/02/2017 Visit Plan: Esophageal Reflux - [...] this regimen. 08/01/2017 Appointment: Y[facility] Palomino [facility]Ptel[facility] [place] ([facility] min) Moderate 08/01/2017 Patient Education: Patient [...] this regimen. 2016 Appointment: Yen Palomino WPtel: [phone] [facility] (15 min) Moderate 2016 Patient Education: Patient Medication Summary Completed 2016 Patient Education: Hypertension Completed 2016 Appointment: Yen Palomino WPtel: [phone] [facility] [facility] - Annual Wellness Visit 10/07 Appointment: Yen Palomino WPtel: [facility] (30 min) Complex 10/14/2016 Visit Plan: Hypertension [...] restart linzess. 09/21/2016 Appointment: Elisabeth Lieberman WPtel: [facility] (15 min) Moderate 09/21/2016 Patient Education: Patient [...] on Melatonin 08/24/2016 App[facility]ment: [phone] ([facility] min) Moderate 08/24/2016 Patient Education: Patient [...] Completed 0 05/28/2015 Appointment: [phone] [place] ([place] New Patient 03/02/2015 Referral: Nick Coleman pt will be called to schedule appt Initiated Referral: Nick Coleman Referral Initiated Instructions Comment Date [facility] REFER TO DR GREEN FOR SCREENING COLONOSCOPY BONE DENSITY . Well Adult - pt was counseled [...] change in blood pressure readings at home. Low back pain with sciatica - refer for PT Osteoporosis - no history of prescription treatment per patient report- schedule DEXA 04/20/2021 . Left knee pain, Pre-op surgical cleara [...] for physical therapy at the [facility] in [place] [facility]. phone [phone] fax [phone]. Hypertension - well controlled - continue with [...]
--- OUTSIDE RECORDS SUMMARY | 2021-05-17 07:59 | XMS REPORT | CCD ---
Author Author Karma Palomino Organization Elisabeth Lieberman MD, [facility] Address [address] [place] [address] Phone Care Team Providers Care Carriage Dogger Name Role Phone PP Unavailable CCM Unavailable Summary Purpose Interface Exchange Insurance Providers Payer name Policy type / Coverage type Covered republican ID Effective Begin Date Effective End Date [place] [employer] Medicare Part B [id number] Unknown AARP Medicare Part B [id number] 2019 Unknown Family history Brother Diagnosis Age [...] Unknown Retired 05/28/[address]: [id number] Never smoker 05/28/2015 Alcohol history Unknown occasionally [...] 07/18/2021 Active flecainide 100 mg tablet RxNorm: 646835 TAKE 1 TABLET BY MOUTH TWICE DAILY 04/20/2021 04/14/2022 Active tier 1 approved unti l may 07 2020. approval number [id number] gabapentin 600 mg tablet RxNorm: 379057 TAKE 1 TABLET B Y MOUTH THREE TIMES DAILY 04/20/2021 08/17/2021 Active tier 1 approved until may 07 2020. approval number is [id number] losartan 100 mg-hydrochlorothiazide 25 mg tablet RxNorm: 979 471 Take 1 Tablet(s) Oral every day 04/12/2021 04/19/2021 Inactive meloxicam 15 mg tablet RxNorm: 380505 TAKE 1 TABLET BY MOUTH EV SUDARSHAN08/07/2020 08/02/2021 Active flecainide 100 mg tablet RxNorm: 554890 TAKE 1 TABLET BY MOUTH TWICE DAILY 06/04/2020 04/19/2021 Inactive tier 1 approved unti l may 07 2020. approval number [id number] gabapentin 600 mg tablet RxNorm: 283558 TAKE 1 TABLET B Y MOUTH THREE TIMES DAILY 06/04/2020 10/02/2020 Inactive tier 1 approved until may 07 2020. approval number is [id number] gabapentin 600 mg tablet RxNorm: 648876 TAKE 1 TABLET B Y MOUTH THREE TIMES DAILY 05/20/2020 06/03/2020 Inactive needs PA for low er tier- please send info to office. flecainide 100 mg tablet RxNorm: 117590 TAKE 1 TABLET BY MOUTH TWICE DAILY 05/20/2020 06/03/2020 Inactive needs PA for lower t ier- please send info to office gabapentin 600 mg tablet RxNorm: 376216 TAKE 1 TABLET B Y MOUTH THREE TIMES DAILY 04/07/2020 05/19/2020 Inactive needs PA- please send info to office. flecainide 100 mg tablet RxNorm: 957709 TAKE 1 TABLET BY MOUTH TWICE DAILY 04/07/2020 05/19/2020 Inactive needs PA- please sen d info to office losartan 100 mg-hydrochlorothiazide 25 mg tablet RxNorm: 979 471 TAKE 1 TABLET BY MOUTH EVERY DAY 04/06/2020 04/06/2020 Inactive meloxicam 15 mg tablet RxNorm: 210238 TAKE 1 TABLET BY MOUTH EV SUDARSHAN DAY 02/04/2020 05/03/2020 Inactive clindamycin HCl 300 mg capsule RxNorm: 099498 1 Capsule (s) Oral three times a day 01/06/2020 01/13/2020 Inactive Augmentin 500 mg-125 mg tablet RxNorm: 354276 1 Tablet( s) Oral three times a day 01/06/2020 01/16/2020 Inactive gabapentin 600 mg tablet RxNorm: 804737 TAKE 1 TABLET B Y MOUTH THREE TIMES DAILY 11/14/2019 03/12/2020 Inactive losartan 100 mg-hydrochlorothiazide 25 mg tablet RxNorm: 979 471 TAKE 1 TABLET BY MOUTH EVERY DAY 10/18/2019 04/05/2020 Inactive flecainide 100 mg tablet RxNorm: 915527 TAKE 1 TABLET BY MOUTH TWICE DAILY 09/23/2019 04/06/2020 Inactive Xanax 0.25 mg tablet RxNorm: 075232 1 Tablet(s) Oral ev sudarshan day as needed anxiety 09/20/2019 No Stop Date Active dapsone 25 mg tablet RxNorm: 702316 1 Tablet(s) Oral two times a da y 09/20/2019 09/27/2019 Inactive naproxen 500 mg tablet RxNorm: 830747 1 Tablet(s) Oral two time s a day 09/20/2019 09/24/2019 Inactive mupirocin 2 % topical ointment RxNorm: 909256 1 Applica tion Topical two times a day 09/16/2019 No Stop Date Active naproxen 500 mg tablet RxNorm: 585800 1 Tablet(s) Oral two time s a day 09/16/2019 09/19/2019 Inactive doxycycline hyclate 100 mg capsule RxNorm: 5861158 1 Cap heavenly(s) Oral two times a day 09/16/2019 09/26/2019 Inactive valacyclovir 1 gram tablet RxNorm: 621177 1 Tablet(s) Oral thre e times a day 09/16/2019 09/23/2019 Inactive gabapentin 600 mg tablet RxNorm: 523442 TAKE 1 TABLET B Y MOUTH THREE TIMES DAILY 09/03/2019 11/01/2019 Inactive meloxicam 15 mg tablet RxNorm: 760576 TAKE 1 TABLET BY MOUTH DAILY 08/05/2019 02/03/2020 Inactive diclofenac 1 % topical gel RxNorm: 224089 1-2 Gram(s) Topical t hree times a day 07/22/2019 08/21/2019 Inactive gabapentin 600 mg tablet RxNorm: 228271 1 Tablet(s) Oral three times a day 05/30/2019 05/29/2019 Inactive gabapentin 600 mg tablet RxNorm: 497204 1 Tablet(s) Oral three times a day 05/30/2019 07/29/2019 Inactive hydrochlorothiazide 25 mg tablet RxNorm: 195554 1 Tablet(s) PO barby y 01/04/2019 01/03/2019 Inactive hydrochlorothiazide 25 mg tablet RxNorm: 562884 1 Tablet(s) PO barby y 01/04/2019 04/19/2021 Inactive losartan 100 mg tablet RxNorm: 029719 1 Tablet(s) PO daily 01/05/2004/19/2021 Inactive losartan 100 mg tablet RxNorm: 071515 1 Tablet(s) PO daily 01/05/20 19 01/03/2019 Inactive losartan 100 mg-hydrochlorothiazide 25 mg tablet RxNorm: 979 471 Tablet(s) TABLET(S) TAKE 1 TABLET BY MOUTH EVERY DAY 01/01/2019 06/29/2019 Inact carlos meloxicam 15 mg tablet RxNorm: 997196 1 TABLET(S) PO DAILY 1 TA BLET(S) PO DAILY 2018 08/04/2019 Inactive Lyrica 150 mg capsule RxNorm: 288650 1 Capsule(s) PO BID 10/18/2018 1 Inactive Lyrica 150 mg capsule RxNorm: 684176 1 Capsule(s) PO BID 10/18/2018 0 10/17/2018 Inactive flecainide 100 mg tablet RxNorm: 287832 1 TABLET(S) PO BID TABLET(S) TAKE 1 TABLET BY MOUTH TWICE DAILY 08/29/2018 08/23/2019 Inactive Carafate 1 gram tablet RxNorm: 487342 1 TABLET(S) PO QID 08/23/2018 0 10/21/2018 Inactive Patient requests 90 days supply Protonix 40 mg tablet,delayed release RxNorm: 721410 1 TABLET(S ) PO DAILY 08/23/2018 10/21/2018 Inactive Patient requests 9 0 days supply Protonix 40 mg tablet,delayed release RxNorm: 943382 1 Tablet(s ) PO daily 08/22/2018 08/21/2018 Inactive Carafate 1 gram tablet RxNorm: 161981 1 Tablet(s) PO QID 08/22/2018 0 08/22/2018 Inactive Linzess 72 mcg capsule RxNorm: 7824055 1 Capsule(s) PO daily 201811/19/2018 Inactive Protonix 40 mg tablet,delayed release RxNorm: 551493 1 Tablet(s ) PO daily 08/22/2018 08/22/2018 Inactive Linzess 72 mcg capsule RxNorm: 6965784 1 Capsule(s) PO daily 201808/21/2018 Inactive Carafate 1 gram tablet RxNorm: 927717 1 Tablet(s) PO QID 08/22/2018 0 08/21/2018 Inactive cyclobenzaprine 5 mg tablet RxNorm: 728170 1-2 Tablet(s) PO TID 08/26/2018 Inactive losartan 100 mg-hydrochlorothiazide 25 mg tablet RxNorm: 979 471 TABLET(S) TAKE 1 TABLET BY MOUTH EVERY DAY 06/25/2018 12/21/2018 Inactive cyclobenzaprine 5 mg tablet RxNorm: 518201 1-2 Tablet(s) PO TID 04/01/2018 Inactive Dexilant 60 mg capsule, delayed release RxNorm: 534867 1 Capsul e(s) PO daily 03/09/2018 03/08/2018 Inactive Dexilant 60 mg capsule, delayed release RxNorm: 774182 1 Capsul e(s) PO daily 03/09/2018 04/07/2018 Inactive Lyrica 75 mg capsule RxNorm: 372323 1 Capsule(s) PO TID 03/09/2018 Inactive amoxicillin 500 mg capsule RxNorm: 005980 1 Capsule(s) PO TID 03/0503/11/2018 Inactive cyclobenzaprine 5 mg tablet RxNorm: 913108 1-2 Tablet(s) PO TID 03/02/2018 Inactive acyclovir 800 mg tablet RxNorm: 303153 1 Tablet(s) PO TID 02/26/2018 03/03/2018 Inactive Lyrica 75 mg capsule RxNorm: 224758 1 Capsule(s) PO TID 02/26/2018 Inactive meloxicam 15 mg tablet RxNorm: 436915 1 TABLET(S) PO DAILY 1 TA BLET(S) PO DAILY 12/08/2017 12/02/2018 Inactive flecainide 100 mg tablet RxNorm: 808396 1 TABLET(S) PO BID TABLET(S) TAKE 1 TABLET BY MOUTH TWICE DAILY 09/12/2017 08/28/2018 Inactive meloxicam 15 mg tablet RxNorm: 762737 1 TABLET(S) PO DAILY 1 TA BLET(S) PO DAILY 09/11/2017 12/18/2018 Inactive meloxicam 15 mg tablet RxNorm: 825284 1 Tablet(s) PO daily 1 TA BLET(S) PO DAILY 09/07/2017 09/10/2017 Inactive Bactrim DS 800 mg-160 mg tablet RxNorm: 001175 1 Tablet(s) PO BID 0 07/03/2017 07/09/2017 Inactive Bactrim DS 800 mg-160 mg tablet RxNorm: 297199 1 Tablet(s) PO BID 0 07/03/2017 07/02/2017 Inactive losartan 100 mg-hydrochlorothiazide 25 mg tablet RxNorm: 979 471 Tablet(s) TAKE 1 TABLET BY MOUTH EVERY DAY 06/08/2017 03/04/2018 Inactive losartan 100 mg-hydrochlorothiazide 25 mg tablet RxNorm: 979 471 1 TABLET(S) PO DAILY TABLET(S) TAKE 1 TABLET BY MOUTH EVERY DAY 12/05/2016 06/07/2017 Inactive amoxicillin 500 mg capsule RxNorm: 538491 1 Capsule(s) PO TID 10/1410/23/2016 Inactive losartan 100 mg-hydrochlorothiazide 25 mg tablet RxNorm: 979 471 1 Tablet(s) PO daily TABLET(S) TAKE 1 TABLET BY MOUTH EVERY DAY 08/24/2016 12/04/2016 Inactive meloxicam 15 mg tablet RxNorm: 191068 1 Tablet(s) PO daily 1 TA BLET(S) PO DAILY 08/24/2016 09/06/2017 Inactive flecainide 100 mg tablet RxNorm: 902888 1 Tablet(s) PO BID TABLET(S) TAKE 1 TABLET BY MOUTH TWICE DAILY 08/24/2016 09/11/2017 Inactive flecainide 100 mg tablet RxNorm: 128649 TABLET(S) TAKE 1 TABLET BY MOUTH TWICE DAILY 08/02/2016 08/23/2016 Inactive flecainide 100 mg tablet RxNorm: 682315 TABLET(S) TAKE 1 TABLET BY MOUTH TWICE DAILY 07/04/2016 08/01/2016 Inactive flecainide 100 mg tablet RxNorm: 018380 TABLET(S) TAKE 1 TABLET BY MOUTH TWICE DAILY 05/30/2016 06/28/2016 Inactive meloxicam 15 mg tablet RxNorm: 687498 1 TABLET(S) PO DAILY 05/18/19 17 08/23/2016 Inactive losartan 50 mg-hydrochlorothiazide 12.5 mg tablet RxNorm: 97 9468 TABLET(S) TAKE 1 TABLET BY MOUTH EVERY DAY 05/18/2016 06/16/2016 Inactive meloxicam 15 mg tablet RxNorm: 526446 Tablet(s) TAKE 1 TABLET BY MOUTH EVERY DAY 05/17/2016 07/31/2017 Inactive losartan 50 mg-hydrochlorothiazide 12.5 mg tablet RxNorm: 97 9468 Tablet(s) TAKE 1 TABLET BY MOUTH EVERY DAY 05/17/2016 07/31/2017 Inactive amoxicillin 500 mg capsule RxNorm: 889792 1 Capsule(s) PO TID 03/0703/13/2016 Inactive Kenalog 40 mg/mL suspension for injection RxNorm: 8165571 1 Mill iliter(s) Inj 03/07/2016 03/07/2016 Inactive Zithromax Z-Feliciano 250 mg tablet RxNorm: 014000 1 Tablet(s) PO 016 08/23/2016 Inactive Wellbutrin XL 150 mg 24 hr tablet, extended release RxNorm: 065217 1 Tablet(s) PO daily 12/24/2015 08/23/2016 Inactive losartan 50 mg-hydrochlorothiazide 12.5 mg tablet RxNorm: 97 9468 TAKE 1 TABLET BY MOUTH EVERY DAY 11/17/2015 12/16/2015 Inactive flecainide 100 mg tablet RxNorm: 492700 TAKE 1 TABLET BY MOUTH TWICE DAILY 11/17/2015 07/31/2017 Inactive losartan 50 mg-hydrochlorothiazide 12.5 mg tablet RxNorm: 97 9468 TABLET(S) TAKE 1 TABLET BY MOUTH EVERY DAY 11/17/2015 07/31/2017 Inactive Serafin bakernt requests 90 days supply meloxicam 15 mg tablet RxNorm: 563773 TAKE 1 TABLET BY MOUTH 11/17/2015 12/16/2015 Inactive meloxicam 15 mg tablet RxNorm: 363299 1 Tablet(s) PO daily 11/16/19 16 11/16/2015 Inactive flecainide 100 mg tablet RxNorm: 686383 Tablet(s) TAKE 1 TABLET BY MOUTH TWICE DAILY 11/16/2015 05/13/2016 Inactive losartan 50 mg-hydrochlorothiazide 12.5 mg tablet RxNorm: 97 9468 Tablet(s) TAKE 1 TABLET BY MOUTH EVERY DAY 11/16/2015 11/16/2015 Inactive losartan 50 mg-hydrochlorothiazide 12.5 mg tablet RxNorm: 97 9468 TAKE 1 TABLET BY MOUTH EVERY DAY 10/15/2015 11/13/2015 Inactive flecainide 100 mg tablet RxNorm: 672754 TAKE 1 TABLET BY MOUTH TWICE DAILY 10/08/2015 11/06/2015 Inactive losartan 50 mg-hydrochlorothiazide 12.5 mg tablet RxNorm: 97 9468 TAKE 1 TABLET BY MOUTH EVERY DAY 08/20/2015 09/18/2015 Inactive meloxicam 15 mg tablet RxNorm: 225145 1 Tablet(s) PO daily 07/20/19 16 11/15/2015 Inactive flecainide 100 mg tablet RxNorm: 277104 1 Tablet(s) PO BID 07/20/19 16 09/17/2015 Inactive aspirin 81 mg chewable tablet RxNorm: 116312 1 Tablet(s) PO daily 0 05/28/2015 06/26/2015 Inactive Vitamin D3 2,000 unit tablet RxNorm: 804571 1 Tablet(s) PO daily 06/26/2015 Inactive aspirin 81 mg chewable tablet RxNorm: 242605 1 Tablet(s) PO daily 0 05/28/2015 05/27/2015 Inactive flecainide 100 mg tablet RxNorm: 648227 1 Tablet(s) PO BID 05/28/19 16 06/26/2015 Inactive losartan 50 mg-hydrochlorothiazide 12.5 mg tablet RxNorm: 97 9468 1 Tablet(s) PO daily 05/28/2015 06/26/2015 Inactive meloxicam 15 mg tablet RxNorm: 047806 1 Tablet(s) PO daily 05/28/19 16 06/26/2015 Inactive meloxicam 15 mg tablet RxNorm: 431129 1 Tablet(s) PO daily 05/22/19 16 05/27/2015 Inactive meloxicam 15 mg tablet RxNorm: 319682 1 Tablet(s) PO daily 05/22/19 16 05/21/2015 Inactive Linzess oral RxNorm: 7288081 oral 12/20/2016 Active Vitamin D3 2,000 unit tablet RxNorm: 452600 1 Tablet(s) PO daily 05/27/2015 Inactive losartan 50 mg-hydrochlorothiazide 12.5 mg tablet RxNorm: 97 9468 1 Tablet(s) PO daily 05/28/2015 05/27/2015 Inactive flecainide 100 mg tablet RxNorm: 051559 1 Tablet(s) PO BID 05/28/19 16 05/27/2015 Inactive Medication Administered Medication Codes Instructions Start Date Status Kenalog 40 mg/mL suspension for injection RxNorm: 2909783 1Milli liter 03/07/2016 No longer Active Immunizations No Immunization data Results Observation Observation Code Item Item Code Result Date S ervice Location Tsh Ord6 TSH (3rd IS) 1.20 uIU/mL 04/20/2021 Unkn own Lipid Ord30 CHOL 199 mg/dL 04/20/2021 Unknown Lipid Ord30 HDL 63.0 mg/dl 04/20/2021 Unknown Lipid Ord30 TRIG 91 mg/dL 04/20/2021 Unknown Lipid Ord30 LDL 118 mg/dL 04/20/2021 Unknown Lipid Ord30 C/HDL 3.2 Ratio 04/20/2021 Unknown Comp Metabolic Gsk667 NA 142 mEq/L 04/20/2021 Unkn own Comp Metabolic Ore812 K 3.9 mEq/L 04/20/2021 Unkn own Comp Metabolic Mvs228 CL 106 mEq/L 04/20/2021 Unkn own Comp Metabolic Yul670 CO2 30.0 mEq/L 04/20/2021 Unk nown Comp Metabolic Pff744 ANION GAP 10 04/20/2021 Unkn own Comp Metabolic Tye243 GLUCOSE 87 mg/dL 04/20/2021 Unkn own Comp Metabolic Jdl546 Creat 1.2 mg/dL 04/20/2021 Unkn own Comp Metabolic Mid154 eGFR 48 ml/min/1.73m2 04/20/20 21 Unknown Comp Metabolic Bul813 BUN 22 mg/dL 04/20/2021 Unkn own Comp Metabolic Bfa435 B/C Ratio 18.8 Ratio 04/20/2021 Unk nown Comp Metabolic Lso762 CALCIUM 9.2 mg/dL 04/20/2021 Unkn own Comp Metabolic Khv141 ALK PHOS 80 U/L 04/20/2021 Unkn own Comp Metabolic Dqp792 AST(SGOT) 19 U/L 04/20/2021 Unkn own Comp Metabolic Ypg635 ALT(SGPT) 17 U/L 04/20/2021 Unkn own Comp Metabolic Cur077 BILI T 0.9 mg/dL 04/20/2021 Unkn own Comp Metabolic Umm189 ALBUMIN 3.8 g/dL 04/20/2021 Unkn own Comp Metabolic Ekn946 TPRO 6.0 g/dL 04/20/2021 Unkn own Comp Metabolic Sov809 GLOB 2.2 g/dL 04/20/2021 Unkn own Comp Metabolic Bch992 A/G Ratio 1.8 Ratio 04/20/2021 Unkn own Comp Metabolic Jpq850 Osmo 286 mOsmo 04/20/2021 Unkn own Cbc With Differential Ord2 WBC 4.46 K/ul 04/20/20 21 Unknown Cbc With Differential Ord2 RBC 3.94 M/ul 04/20/20 21 Unknown Cbc With Differential Ord2 HGB 12.5 g/dl 04/20/20 21 Unknown Cbc With Differential Ord2 Neut% 60.3 % 04/20/20 21 Unknown Cbc With Differential Ord2 HCT 37.9 % 04/20/20 21 Unknown Cbc With Differential Ord2 Lymph% 24.2 % 04/20/20 21 Unknown Cbc With Differential Ord2 MCV 96.2 fl 04/20/20 21 Unknown Cbc With Differential Ord2 [place]% 6.5 % 04/20/20 21 Unknown Cbc With Differential Ord2 MCH 31.7 pg 04/20/20 21 Unknown Cbc With Differential Ord2 MCHC 33.0 pg 04/20/20 21 Unknown Cbc With Differential Ord2 Eos% 8.3 % 04/20/20 21 Unknown Cbc With Differential Ord2 Baso% 0.7 % 04/20/20 21 Unknown Cbc With Differential Ord2 PLT 196 K/ul 04/20/20 21 Unknown Cbc With Differential Ord2 Neut ABS# 2.69 K/ul 04/20/20 21 Unknown Cbc With Differential Ord2 RDW 12.7 % 04/20/20 21 Unknown Cbc With Differential Ord2 Lymph ABS# 1.08 K/ul 021 Unknown Cbc With Differential Ord2 [place] ABS# 0.3 K/ul 04/20/20 21 Unknown Cbc With Differential Ord2 Eos ABS# 0.4 K/ul 04/20/20 21 Unknown Cbc With Differential Ord2 Baso ABS# 0.0 K/ul 04/20/20 21 Unknown Lipid Ord30 CHOL 199 mg/dL 01/04/2017 Unknown [...] 01/05/20 17 Unknown Cbc With Differential Ord2 [place]% 6.8 % 01/05/20 17 Unknown Cbc With [...] K/ul 017 Unknown Cbc With Differential Ord2 [place] ABS# 0.5 K/ul 01/05/20 17 Unknown Cbc With Differential Ord2 Eos ABS# 0.3 K/ul 01/05/20 17 Unknown Cbc With Differential Ord2 Baso ABS# 0.0 K/ul 01/05/20 17 Unknown Comp Metabolic Wfc715 NA 144 mEq/L 01/04/2017 Unkn own Comp Metabolic Xnb668 K 3.7 mEq/L 01/04/2017 Unkn own Comp Metabolic Rct842 CL 106 mEq/L 01/04/2017 Unkn own Comp Metabolic Oya904 CO2 28.0 mEq/L 01/04/2017 Unk nown Comp Metabolic Uil369 ANION GAP 14 01/04/2017 Unkn own Comp Metabolic Kte445 GLUCOSE 80 mg/dL 01/04/2017 Unkn own Comp Metabolic Itt155 Creat 0.9 mg/dL 01/04/2017 Unkn own Comp Metabolic Inl086 eGFR 65 ml/min/1.73m2 01/05/20 17 Unknown Comp Metabolic Lak750 BUN 18 mg/dL 01/04/2017 Unkn own Comp Metabolic Duv477 B/C Ratio 19.8 Ratio 01/04/2017 Unk nown Comp Metabolic Ajq151 CALCIUM 9.3 mg/dL 01/04/2017 Unkn own Comp Metabolic Okl645 ALK PHOS 65 U/L 01/04/2017 Unkn own Comp Metabolic Pqk389 AST(SGOT) 16 U/L 01/04/2017 Unkn own Comp Metabolic Fog347 ALT(SGPT) 18 U/L 01/04/2017 Unkn own Comp Metabolic Mem337 BILI T 1.2 mg/dL 01/04/2017 Unkn own Comp Metabolic Pha215 ALBUMIN 3.9 g/dL 01/04/2017 Unkn own Comp Metabolic Zro102 TPRO 6.1 g/dL 01/04/2017 Unkn own Comp Metabolic Skq686 GLOB 2.2 g/dL 01/04/2017 Unkn own Comp Metabolic Jsb597 A/G Ratio 1.8 Ratio 01/04/2017 Unkn own Comp Metabolic Zmy277 Osmo 288 mOsmo 01/04/2017 Unkn own Tsh Ord6 hTSH II 1.22 uIU/mL 01/04/2017 Unknown Comp Metabolic Vzt703 NA 139 mEq/L 12/24/2015 Unkn own Comp Metabolic Wdt214 K 3.7 mEq/L 12/24/2015 Unkn own Comp Metabolic Vgj975 CL 105 mEq/L 12/24/2015 Unkn own Comp Metabolic Btx841 CO2 30.0 mEq/L 12/24/2015 Unk nown Comp Metabolic Oyi328 ANION GAP 8 12/24/2015 Unkn own Comp Metabolic Voq320 GLUCOSE 83 mg/dL 12/24/2015 Unkn own Comp Metabolic Ajw724 Creat 0.9 mg/dL 12/24/2015 Unkn own Comp Metabolic Cou039 eGFR 70 ml/min/1.73m2 12/24/19 16 Unknown Comp Metabolic Tgn851 BUN 20 mg/dL 12/24/2015 Unkn own Comp Metabolic Xqa478 B/C Ratio 23.3 Ratio 12/24/2015 Unk nown Comp Metabolic Mnp938 CALCIUM 9.2 mg/dL 12/24/2015 Unkn own Comp Metabolic Tsj444 ALK PHOS 65 U/L 12/24/2015 Unkn own Comp Metabolic Olc696 AST(SGOT) 17 U/L 12/24/2015 Unkn own Comp Metabolic Ebq061 ALT(SGPT) 18 U/L 12/24/2015 Unkn own Comp Metabolic Lji829 BILI T 1.1 mg/dL 12/24/2015 Unkn own Comp Metabolic Oww103 ALBUMIN 3.9 g/dL 12/24/2015 Unkn own Comp Metabolic Kiu495 TPRO 6.1 g/dL 12/24/2015 Unkn own Comp Metabolic Eza192 GLOB 2.2 g/dL 12/24/2015 Unkn own Comp Metabolic Zfi612 A/G Ratio 1.8 Ratio 12/24/2015 Unkn own Comp Metabolic Gix188 Osmo 279 mOsmo 12/24/2015 Unkn own Lipid [...] 12/24/19 16 Unknown Cbc With Differential Ord2 [place]% 8.2 % 12/24/19 16 Unknown Cbc With [...] K/ul 016 Unknown Cbc With Differential Ord2 [place] ABS# 0.4 K/ul 12/24/19 16 Unknown Cbc With Differential Ord2 Eos ABS# 0.4 K/ul 12/24/19 16 Unknown Cbc With Differential Ord2 Baso ABS# 0.0 K/ul 12/24/19 16 Unknown Tsh Ord6 hTSH II 1.45 uIU/mL 12/24/2015 Unknown Procedures Procedure Codes Date TRIAMCINOLONE ACET INJ NOS 10 mg CPT-4: J3301 016 DESTRUCT PREMALG LES 2-14 CPT-4: 28967 05/28/2015 Vital Signs Date Vital 04/20/2021 Blood Pressure 1: 144/60 Code: 8480-6 BMI: 36.7 Code: 70699-2 Heart Rate 1: 61 bpm Height: 5'4" Code: 8302-2 SpO2: 97% Temperature: 3 5.6 (C) / 96.0 (F) Weight: 214 lbs Code: 82684-4 11/28/2019 Weight: 205 lbs Code: 91016 -7 09/20/2019 Height: Code: 8302-2 Weight: Code: 294 63-7 09/16/2019 Heart Rate 1: 70 bpm Height: Code: 8302-2 SpO2: 98% Weight: Code: 72329-4 07/22/2019 Blood Pressure 1: 116/70 Code: 8480-6 BMI: 35.2 Code: 96102-5 Heart Rate 1: 54 bpm Height: 5'3" Code: 8302-2 Respiratory Rate: 16 bpm SpO2: 97% Weight: 202 lbs Code: 76134-3 04/17/2019 Blood Pressure 1: 156/70 Code: 8480-6 BMI: 32.9 Code: 50463-7 Heart Rate 1: 68 bpm Height: 5'6" Code: 8302-2 SpO2: 99% Weight: 204 lb s Code: 57835-3 08/22/2018 Blood Pressure 1: 128/64 Code: 8480-6 BMI: 31.3 Code: 81193-0 Heart Rate 1: 76 bpm Height: 5'6" Code: 8302-2 SpO2: 98% Weight: 194 lb s Code: 35199-0 02/26/2018 Blood Pressure 1: 140/72 Code: 8480-6 BMI: 33.6 Code: 50319-4 Heart Rate 1: 64 bpm Height: 5'6" Code: 8302-2 SpO2: 99% Weight: 208 lb s Code: 47459-3 08/01/2017 Blood Pressure 1: 148/82 Code: 8480-6 BMI: 37.3 Code: 17968-5 Heart Rate 1: 62 bpm Height: 5'6" Code: 8302-2 SpO2: 98% Weight: 231 lb s Code: 05662-6 2016 Blood Pressure 1: 128/64 Code: 8480-6 BMI: 38.4 Code: 86519-0 Heart Rate 1: 69 bpm Height: 5'6" Code: 8302-2 SpO2: 96% Weight: 238 lb s Code: 53828-6 09/21/2016 Blood Pressure 1: 148/90 Code: 8480-6 Bl ood Pressure 1: 138/82 Code: 8480-6 BMI: 37.9 Code: 59081-2 Heart Rate 1: 62 bpm Height: 5'6" Code: 8302-2 SpO2: 96% Weight: 235 lbs Code: 97101-0 08/24/2016 Blood Pressure 1: 164/82 Code: 8480-6 BMI: 38.3 Code: 08374-8 Heart Rate 1: 71 bpm Height: 5'6" Code: 8302-2 SpO2: 96% Weight: 237 lb s 8 oz Code: 25572-5 03/07/2016 Blood Pressure 1: 124/68 Code: 8480-6 BMI: 37.3 Code: 44699-0 Heart Rate 1: 58 bpm Height: 5'6" Code: 8302-2 SpO2: 97% Weight: 231 lb s Code: 66833-6 12/24/2015 Blood Pressure 1: 140/66 Code: 8480-6 BMI: 37.6 Code: 36635-7 Heart Rate 1: 57 bpm Height: 5'6" Code: 8302-2 SpO2: 97% Weight: 233 lb s Code: 22980-1 05/28/2015 Blood Pressure 1: 156/88 Code: 8480-6 BMI: 38.4 Code: 13918-2 Heart Rate 1: 62 bpm Height: 5'6" Code: 8302-2 Weight: 238 lbs Code: 91362 -7 Functional Status No Functional Status data [...] 05/28/2015 Encounters Encounter Performer Location Codes Date ) 36579 EST. PATIENT, LEVEL IV Diagnosis: Encounter for general adult medical examination with abnormal findings[ICD10: Z00.01] Diagnosis: Essential (primary) hypertension[ICD10: I10] Diagnosis: Osteoporosis[ICD10: M81.0] Diagnosis: Low back pain with right-sided sciatica[ICD10: M54.41] Fadumo Lieberman MD, [facility] CPT-4: 08047 04/20/2021 [id number] EST. PATIENT, LEVEL III Diagnosis: Left knee pain[ICD10: M25.562] Diagnosis: Pre-op evaluation[ICD10: Z01.818] Yen atkins MD, [facility] CPT-4: 61594 11/28/2019 64911 EST. PATIENT, LEVEL II Diagnosis: Cellulitis of right wrist[ICD10: L03.113] Diagnosis: Spider bite wound, accidental or unintentional, subsequent encounter[ICD10: T63.301D] Yen Lieberman MD, [facility] CPT-4: 46617 09/23/2019 73130 EST. PATIENT, LEVEL II Diagnosis: Cellulitis of right wrist[ICD10: L03.113] Diagnosis: Spider bite wound, accidental or unintentional, subsequent encounter[ICD10: T63.301D] Yen Lieberman MD, [facility] CPT-4: 42554 09/20/2019 78008 EST. PATIENT, LEVEL III Diagnosis: Cellulitis of right wrist[ICD10: L03.113] Diagnosis: Follow up[ICD10: Z09] Diagnosis: Spider bite wound, accidental or unintentional, initial encounter[ICD10: T63.301A] Diagnosis: Shingles[ICD10: B02.9] Yen Lieberman MD, [facility] CPT -4: 41797 09/16/2019 ([id number]) 70709 EST. PATIENT, LEVEL IV Diagnosis: Essential (primary) hypertension[ICD10: I10] Diagnosis: Generalized anxiety disorder[ICD10: F41.1] Diagnosis: Pain in right foot[ICD10: M79.671] Diagnosis: Primary osteoarthritis of left knee[ICD10: M17.12] Elisabeth Lieberman MD, [facility] CPT-4: 96846 07/22/2019 98736 EST. PATIENT, LEVEL III Diagnosis: Follow-up examination after orthopedic surgery[ICD10: Z09] Diagnosis: Hip fracture, left[ICD10: S72.002A] Yen more MD, [facility] CPT-4: 45822 04/17/2019 48977 EST. PATIENT, LEVEL IV Diagnosis: Gastro-esophageal reflux disease without esophagitis[ICD10: K21.9] Diagnosis: Low back pain[ICD10: M54.5] Diagnosis: Slow transit constipation[ICD10: K59.01] Yen Lieberman MD, [facility] CPT-4: 76917 08/22/2018 09636 EST. PATIENT, LEVEL III Diagnosis: Pain in right foot[ICD10: M79.671] Yen forte MD, [facility] CPT-4: 84510 02/26/2018 23452 EST. PATIENT, LEVEL IV Diagnosis: Gastro-esophageal reflux disease without esophagitis[ICD10: K21.9] Diagnosis: Chronic idiopathic constipation[ICD10: K59.04] Yen Lieberman MD, [facility] CPT-4: 06632 08/01/2017 06148 EST. PATIENT, LEVEL IV Diagnosis: Essential (primary) hypertension[ICD10: I10] Diagnosis: Chronic idiopathic constipation[ICD10: K59.04] Yen Lieberman MD, [facility] CPT-4: 96895 2016 ([id number]) 14285 EST. PATIENT, LEVEL IV Diagnosis: Essential (primary) hypertension[ICD10: I10] Diagnosis: Generalized anxiety disorder[ICD10: F41.1] Diagnosis: Chronic idiopathic constipation[ICD10: K59.04] Elisabeth Lieberman MD, [facility] CPT-4: 62355 09/21/2016 ([id number]) 61617 EST. 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 PATIENT, LEVEL III Diagnosis: Acute laryngopharyngitis[ICD10: J06.0] Diagnosis: Other acute sinusitis[ICD10: J01.80] Yen Lieberman MD, [facility] CPT-4: 38727 03/07/2016 ([id number]) [id number] EST. PATIENT, LEVEL IV Diagnosis: Essential (primary) hypertension[ICD10: I10] Diagnosis: Major depressive disorder, recurrent, moderate[ICD10: F33.1] Diagnosis: Generalized anxiety disorder[ICD10: F41.1] [facility] CPT-4: 09432 12/24/2015 ([id number]) OFFICE VISIT, NEW - LEVEL 4 Diagnosis: Essential (primary) hypertension[ICD10: I10] Diagnosis: Actinic keratosis[ICD10: L57.0] Diagnosis: Generalized anxiety disorder[ICD10: F41.1] Diagnosis: Major depressive disorder, recurrent, moderate[ICD10: F33.1] [facility] CPT-4: 65099 05/28/2015 Plan of Care Planned Activity Notes [...] Completed 04/20/2021 Patient Education: Hypertension Completed 04/20/2021 Visit Plan: Left knee pain, Pre-op surgi lux clearance - Dr. Lieberman in to evaluate pt - OK for surgery - pt is to notify clinic with any changes in the current treatment plan. 11/28/2019 Appointment: Yen Palomino WPtel: [facility] ([facility] min) Complex 11/28/2019 Patient Education: Patient Medication Summary Completed 11/28/2019 App[facility]ment: [facility] [facility] (15 min) Moderate 11/25/2019 Visit Plan: Spider bite - improving - al most resolved - pt is to finish RX as ordered and notify clinic if symptoms do not improve, if they worsen, or with any changes, questions, or concerns. 09/23/2019 Patient Education: Patient Medication Summary Completed 09/23/2019 Appointment: [phone] [facility] (30 min) Complex 09/20/2019 Patient Education: Patient [...] not improve. 09/16/2019 Appointment: [facility]el[phone] [facility] (30 min) Complex 09/16/2019 Patient Education: Patient [...] a Referral for physical therapy at the [facility] in [place] [facility]. phone [phone] fax [phone]. Hypertension - well controlled - continue with [...] Orthopedic surgeon. 07/22/2019 Appointment: Elisabeth Lieberman WPtel: [facility] (30 min) Complex 07/22/2019 Patient Education: Patient Medication Summary Completed 07/22/2019 Patient Education: Hypertension Completed 07/22/2019 Care Plan: CHEST X-RAY 2VW FRONTAL&LATL LOINC : 72599-7 Pending 07/22/2019 Care Plan: COMPLETE CBC AUTOMATED LOINC : 54634-4 Pending 07/22/2019 Care Plan: URINALYSIS NONAUTO W/O SCOPE LOINC : 28275-0 Ordered 07/22/2019 Appointment: Yen Palomino WPtel: [address] [place], [place] [address] [place] (30 min) Complex 07/19/2019 Visit Plan: Left hip fracture - defer to ortho - pt is to continue with home health to assist with monitoring symptoms, vitals, medications, and surgical follow up - pt is to notify clinic with any changes, questions, or concerns. 04/17/2019 Appointment: Yen Palomino WPtel: [facility] (30 min) Complex 04/17/2019 Patient Education: Patient Medication Summary Completed 04/17/2019 Appointment: Yen Palomino WPtel: [facility] (30 min) Complex 08/22/2018 Patient Education: Patient Medication Summary Completed 08/22/2018 Patient Education: Back Pain Completed 08/22/2018 Appointment: Yen Palomino WPtel: [address] [place], [place] [address] [place] (30 min) Complex 07/23/2018 Visit Plan: right foot pain - will check x-ray and treat as indicated - The pt is to use prn antiinflammatories to manage acute pain. The patient is to call the office if the pain is worsening or does not improve. 02/26/2018 Appointment: Yen Palomino WPtel: [facility] [place] (15 min) Moderate 02/26/2018 Patient Education: Patient Medication Summary Completed 02/26/2018 Care Plan: Referral Order SNOMED-CT : [id number] Pending 08/02/2017 Visit Plan: Esophageal Reflux - [...] improved on this regimen. 08/01/2017 Appointment: Yen Palominol: [facility]5 [facility] (15 min) Moderate 08/01/2017 Patient Education: Patient [...] improved on this regimen. 2016 Appointment: Yen Palominotel: [facility] (15 min) Moderate 2016 Patient Education: Patient Medication Summary Completed 2016 Patient Education: Hypertension Completed 2016 Appointment: Yen Palominotel: [facility] [place] [facility] - Annual Wellness Visit 10/07 Appointment: Yen Palominotel: [facility]5 [facility] (30 min) Complex 10/14/2016 Visit Plan: Hypertension [...] restart linzess. 09/21/2016 Appointment: Elisabeth Lieberman WPtel: [phone] [facility] (15 min) Moderate 09/21/2016 Patient [...] Melatonin 08/24/2016 App[facility]ment: [phone] (15 min) Moderate 08/24/2016 Patient Education: Patient [...] 0 05/28/2015 Appointment: [phone] [facility] [place] (S) New Patient 03/02/2015 Referral: Nick Coleman pt will be called to schedule appt Initiated Referral: Nick Coleman Referral Initiated Instructions Comment Date [facility] PT AT [facility] REFER TO DR GREEN FOR SCREENING [...] for physical therapy at the [facility] in [place] - traction. phone [phone] fax [phone]. Hypertension - well controlled - continue with [...]
[2021-05-17] MEDS ORDERED: LACTATED RINGERS 1,000 ML IV ONE (08:04)
[2021-05-17] MEDS ORDERED: LACTATED RINGERS 1,000 ML IV STA (08:08)
[2021-05-17 08:10] VITALS: BP 139/73
--- NOTE | 2021-05-17 08:26 | Progress Note-Pre Operative ---
Pre-Operative Progress Note H&P Reviewed The H&P was reviewed, patient examined and no changes noted. Time Seen by Provider: 08:20 Date H&P Reviewed: May 17, 2021 Time H&P Reviewed: 08:20 Pre-Operative Diagnosis: screening colon CHRISTINA GREEN DO May 17, 2021 08:26
[2021-05-17] MEDS ORDERED: PROPOFOL INJECTION 50 ML IV ONE ×2 (09:06→09:32)
[2021-05-17 09:50] VITALS: BP 99/55
[2021-05-17 09:52] VITALS: BP 106/59
--- NOTE | 2021-05-17 09:56 | Endoscopy Discharge Instruct ---
Endo Procedure/Findings Findings 1.: Polyp 2.: Diverticulosis 3.: Internal Hemorrhoids Discharge Instructions - Activity: You might feel a little sleepy until tomorrow. This is due to the medicine you received to relax you. Until tomorrow, you should: NOT drive a car, operate machinery or power tools. NOT drink any alcoholic beverages. NOT make any important decisions or sign importortant papers. Do not return to work until tomorrow, unless otherwise instructed. Resume previous activities tomorrow. Diet: Start by taking liquids. If you tolerate liquids, advance to solid food. 1.: Colonscopy in 5 years Notify Physician - If you experience excessive bleeding, unusual abdominal pain, fever, or chest pain, contact your doctor immediately. CHRISTINA GREEN DO May 17, 2021 09:56
--- NOTE | 2021-05-17 09:56 | Progress Note-Post Operative ---
Post-Operative Progess Note Surgeon (s)/Senior Construction Project Manager (s) Surgeon CHRISTINA GREEN DO Senior Construction Project Manager: BRIA William Pre-Operative Diagnosis screening colon Post-Operative Diagnosis polyps diverticula int hemorrhoids Procedure & Operative Findings Date of Procedure 05/17/21 Procedure Performed/Findings Colon with snare PROCEDURE NOTE: After informed consent was obtained, the patient was brought to the endoscopy suite, placed in bed in left lateral decubitus position. She was administered IV sedation by the PILING CUTTER who then monitored her vitals the entire time, heart rate, blood pressure and pulse ox and the scope was inserted, pushed all the way to about 150 cm and pushed into the cecum. On the way in noted some diverticula and took a picture of them. In the cecum noted a polyp and elected to do a snare polypectomy. Next took a picture of appendiceal orifice and noted the ileocecal valve. Then slowly withdrew the scope insufflating to look circumferentially at the gonzales starting in the cecum, up the ascending colon to the hepatic flexure, then down the transverse colon, splenic flexure and into the descending colon down. In the sigmoid saw another small polyp and performed another snare polypectomy. Finally into the rectal vault and retroflexed the scope, took a picture of the internal hemorrhoids. While doing this noted a sessile polyp and did another snare polypectomy. Removed the scope. The patient tolerated the procedure. She was recovered in endoscopy suite. Anesthesia Type IV sedation by PILING CUTTER Estimated Blood Loss Estimated blood loss (mL): scant Specimens/Packing Specimens Removed cecal polyp sigmoid polyp rectal polyp CHRISTINA GREEN DO May 17, 2021 09:56
[2021-05-17 10:30] VITALS: BP 125/74
--- NOTE | 2021-05-17 10:45 | Anesthesia-General Post-Op ---
MAC Patient Condition Mental Status/LOC: Same as Preop Cardiovascular: Satisfactory Nausea/Vomiting: Absent Respiratory: Satisfactory Pain: Controlled Complications: Absent Post Op Complications Complications None Follow Up Care/Instructions Patient Instructions None needed. Anesthesiology Discharge Order Discharge Order Patient is doing well, no complaints, stable vital signs, no apparent adverse anesthesia problems. No complications reported per nursing. MATEO PARKINSON CRNA May 17, 2021 10:45
== END 2021-05-17 10:41 | disposition home or self-care (01) ==
LOC: ENDO 07:55
PROVIDERS: ATTEND Surgery
DX: Z12.11 Encounter for screening for malignant neoplasm of colon (principal); D12.0 Benign neoplasm of cecum; D12.8 Benign neoplasm of rectum; D12.5 Benign neoplasm of sigmoid colon; K57.30 Diverticulosis of large intestine without perforation or abscess without bleeding; K64.8 Other hemorrhoids; I48.91 Unspecified atrial fibrillation; Z79.899 Other long term (current) drug therapy

== ENCOUNTER → 2021-05-20 | Outpatient (CLI) | payer MEDICARE | LOC: LABNPT 08:33 | PROVIDERS: ATTEND Family Medicine | DX: U07.1 COVID-19 (principal) | CPT/HCPCS: 87635 ==

== ENCOUNTER 2021-06-03 10:34 | Outpatient (RCR) | payer MEDICARE | END 2021-06-07 | disposition home or self-care (01) | PROVIDERS: ATTEND Nurse Practitioner Family | DX: M54.41 Lumbago with sciatica, right side (principal) ==

== ENCOUNTER 2021-06-24 10:45 | Outpatient (RCR) | payer MEDICARE | END 2021-07-05 | disposition home or self-care (01) | PROVIDERS: ATTEND Nurse Practitioner Family | DX: M54.41 Lumbago with sciatica, right side (principal) ==

== ENCOUNTER → 2021-10-21 | Outpatient (CLI) | payer MEDICARE ==
--- NOTE | 2021-10-21 14:39 | Diagnostic Imaging Report ---
EXAMINATION: CT head without contrast. TECHNIQUE: Multiple contiguous axial images were obtained through the brain without the use of intravenous contrast. All CT scans use one or more of the following dose optimizing techniques: automated exposure control, MA and/or KvP adjustment based on patient size and exam type or iterative reconstruction. HISTORY: DIZZINESS COMPARISON: None available. FINDINGS: The ventricles and sulci are normal. No abnormal attenuation of brain parenchyma is present. No acute intracranial hemorrhage or abnormal extra-axial fluid collections are present. Calcification of the intracranial ICAs. No hyperdense vessel. The calvarium is intact. The mastoid air cells are clear. The visualized paranasal sinuses are clear. The orbits are normal. IMPRESSION: 1. No acute intracranial abnormality. Dictated by: Dictated on workstation # [id number]
== END ==
LOC: RAD 13:56
PROVIDERS: ATTEND Nurse Practitioner Family
DX: R42 Dizziness and giddiness (principal)
CPT/HCPCS: 70450

== ENCOUNTER 2021-12-25 20:56 | Emergency (ER) | payer MEDICARE ==
[~2021-12-25] VITALS: Ht 162.6 cm; Wt 97.0 kg
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
--- NOTE | 2021-12-25 21:51 | Diagnostic Imaging Report ---
INDICATION: Trauma, fall, pain. TECHNIQUE: Single view chest 9:48 PM. CORRELATION STUDY: None. FINDINGS: Heart size and mediastinum are prominent likely accentuated by technique. Elevated right diaphragm. Lung crews overall are relatively clear. No definitive infiltrate, effusion or pneumothorax. Probable old healed left lateral rib fractures. [place] screw right humeral head. IMPRESSION: Negative for acute traumatic abnormality of the chest. Dictated by: Dictated on workstation # [id number]
--- NOTE | 2021-12-25 21:52 | Diagnostic Imaging Report ---
INDICATION: Pelvic pain, post fall. TECHNIQUE: AP pelvis 9:46 PM. CORRELATION STUDY: None. FINDINGS: The pelvis demonstrates no evidence for acute fracture. The pectineal lines and obturator rings are maintained. Pubic symphysis and SI joints are unremarkable. Moderately advanced degenerative changes of the right hip with joint space narrowing and osteophyte formation. Postop changes of the left proximal femur with partial visualization of internal fixation hardware. Advanced degenerative changes of the lower lumbar spine. IMPRESSION: Negative for acute displaced pelvic fracture. Dictated by: Dictated on workstation # [id number]
--- NOTE | 2021-12-25 22:18 | Diagnostic Imaging Report ---
PROCEDURE: CT head and CT cervical spine without contrast. TECHNIQUE: Multiple contiguous axial images were obtained through the brain and cervical spine without the use of intravenous contrast. Sagittal and coronal reformations through the cervical spine were then performed. Auto Exposure Controls were utilized during the CT exam to meet ALARA standards for radiation dose reduction. INDICATION: 71-year-old female injured in fall, presents with headache. COMPARISON: 10/20/2021. FINDINGS: Midline structures are not displaced. Lateral, 3rd and 4th ventricles are normal in size, shape and anatomic position. There are low areas of attenuation in the left parietal lobe in the left visual cortex. This may be chronic areas of microvascular ischemic change however an area of infarct is not excluded. There is no evidence of hemorrhage. There is no midline shift. Borjas-white differentiation is reasonably well maintained. There are no abnormal extra-axial fluid collections or hemorrhage. Basilar cisterns appear normal. Sinuses, orbits and mastoid air cells are unremarkable. Bone windows show no calvarial changes. IMPRESSION: Geographic areas of low-attenuation in the left parietal lobe suggest areas of infarct with localized edema. Other possibilities include inflammation or infection and subtle vasogenic edema. There is no evidence of hemorrhage. An MRI would be of further value to better assess this finding. Dictated by: Dictated on workstation # [id number]
[2021-12-26] MEDS ORDERED: fentaNYL INJ 100 MCG/2 ML AMP IVP ONE (00:30)
[2021-12-26 00:31] LABS: BASOPHILS # (AUTO) 0.1 10^3/uL (0.0-0.1); BASOPHILS % (AUTO) 1 % (0-10); EOSINOPHILS # (AUTO) 0.3 10^3/uL (0.0-0.3); EOSINOPHILS % (AUTO) 5 % (0-10); HEMATOCRIT 40 % (35-52); HEMOGLOBIN 13.5 g/dL (11.5-16.0); LYMPHOCYTES # (AUTO) 1.6 10^3/uL (1.0-4.0); LYMPHOCYTES % (AUTO) 22 % (12-44); MEAN CORPUSCULAR HEMOGLOBIN 31 pg (25-34); MEAN CORPUSCULAR HGB CONC 33 g/dL (32-36); MEAN CORPUSCULAR VOLUME 92 fL (80-99); MEAN PLATELET VOLUME 9.7 fL (9.0-12.2); MONOCYTES # (AUTO) 0.5 10^3/uL (0.0-1.0); MONOCYTES % (AUTO) 7 % (0-12); NEUTROPHILS # (AUTO) 4.6 10^3/uL (1.8-7.8); NEUTROPHILS % (AUTO) 66 % (42-75); PLATELET COUNT 207 10^3/uL (130-400); WHITE BLOOD COUNT 7.1 10^3/uL (4.3-11.0)
[2021-12-26 00:32] LABS: BILIRUBIN,URINE NEGATIVE (NEGATIVE); CLARITY,URINE CLEAR; COLOR,URINE YELLOW; GLUCOSE, URINE (UA) NEGATIVE (NEGATIVE); KETONES,URINE NEGATIVE (NEGATIVE); LEUKOCYTE ESTERASE ,URINE NEGATIVE (NEGATIVE); NITRITE,URINE NEGATIVE (NEGATIVE); PROTEIN,URINE NEGATIVE (NEGATIVE)
[2021-12-26 00:40] LABS: ALBUMIN 3.9 GM/DL (3.2-4.5); POTASSIUM 3.5 MMOL/L (3.6-5.0)
[2021-12-26 00:42] LABS: CALCIUM 9.7 MG/DL (8.5-10.1); PROTHROMBIN TIME PATIENT 13.1 SEC (12.2-14.7)
[2021-12-26 00:43] LABS: BACTERIA,URINE NEGATIVE /HPF; SQUAMOUS EPITHELIAL CELL,UR 0-2 /HPF
[2021-12-26 00:43] LABS: TOTAL PROTEIN 6.7 GM/DL (6.4-8.2)
[2021-12-26 00:47] LABS: CREATININE SERUM 1.34 MG/DL (0.60-1.30)
[2021-12-26 01:04] VITALS: BP 135/92
== END 2021-12-26 01:04 | disposition short-term general hospital (02) ==
LOC: EDUNIT# 20:56 → ER 20:58
DX: S12.100A Unspecified displaced fracture of second cervical vertebra, initial encounter for closed fracture (principal); S09.90XA Unspecified injury of head, initial encounter; I10 Essential (primary) hypertension; I48.91 Unspecified atrial fibrillation; Z20.822 Contact with and (suspected) exposure to COVID-19; Z79.82 Long term (current) use of aspirin; Z79.899 Other long term (current) drug therapy; W10.9XXA Fall (on) (from) unspecified stairs and steps, initial encounter; Y93.01 Activity, walking, marching and hiking; Y92.59 Other trade areas as the place of occurrence of the external cause
CPT/HCPCS: 36415; 51702; 70450; 71045; 72125; 72170; 80053; 81000; 85025; 85610; 85730; 87636; 93041